=== PATIENT | male | born 1960 | race Caucasian/White ===

== ENCOUNTER 2016-10-25 09:11 | Inpatient (IN) | payer MEDICARE ==
[~2016-10-25] VITALS: Ht 177.8 cm; Wt 186.3 kg
[2016-10-25] VITALS (14 sets, daily range): BP systolic 115–180; BP diastolic 80–119
[~2016-10-25 09:11] MED LIST: ACET325T9 PO; ALBU0.63 NEB; ALBU2.5V5 NEB; ALBU8.5H6 INH; ALLO300T PO; AMIO200T2 PO; AMLO5TAB2 PO; ASPI-482 PO; ASPI325T4 PO; ATOR10TA60 PO; ATOR20TA PO; ATOR20TA58 PO; CARV12.52 PO; CARV25TA PO; CEFA2PLA4 IV; CHOL20002 PO; DABI150C PO; DICL100G7 TP; ERGO2000 PO; FEBU40TA PO; FENO134C PO; FENO160T PO; FURO-69 PO; FURO80TA3 PO; GEMF600T3 PO; GLIM4TAB2 PO; HYDR-2678 PO; LEVE100020 PO; LEVE500T56 PO; LEVO50TA5 PO; LEVO75TA PO; LEVO75TA5 PO; LIDO700A4 TP; LOSA100T2 PO; LOSA100T6 PO; MELA3TAB PO; MEXI200C PO; MODA200T2 PO; Methocarbamol PO; OXYC-244 PO; PANT40TA3 PO; POTA20TA4 PO; POTA20TA84 PO; PROAIR HFA8.5 GM IH; PROAIR HFA8.5 GM INH; SERT100T PO; SERT100T8 PO; SPIR50TA2 PO; SULF1TAB24 PO; TEMA7.5C PO; WARF5TAB PO; WARF5TAB7 PO
--- NOTE | 2016-10-25 09:44 | PHYS DOC ---
Past Medical History Past Medical History: CAD, CHF, CVA, Hypertension, Seizure, Stroke Additional Past Medical Histor: SLEEP APNEA, GOUT Past Surgical History: Cholecystectomy, Pacemaker Additional Past Surgical Histo: with defibrillator Alcohol Use: None Drug Use: None Adult General Chief Complaint Chief Complaint: SHORTNESS OF BREATH HPI HPI Patient is a 56 year old male who presents with shortness of breath. Patient reports over the past 2 weeks he has had increasing difficulty breathing. He denies any chest discomfort. He is coughing some and has been unable to lie flat. Patient says he has been taking his diuretic as he is supposed to. No other acute complaints. Review of Systems Review of Systems Constitutional: Denies fever or chills Eyes: Denies change in visual acuity or eye pain HENT: Denies nasal congestion or sore throat Respiratory: Cough, shortness of breath Cardiovascular: Denies chest pain GI: Denies abdominal pain, nausea, vomiting, bloody stools or diarrhea : Denies dysuria or hematuria Musculoskeletal: Denies back pain or joint pain Integument: Denies rash or skin lesions Neurologic: Denies headache, focal weakness or sensory changes Current Medications Current Medications Current Medications Medications (Trade) Dose Ordered Sig/Abhay Start Time Stop Time Status Last Admin Dose Admin Aspirin (Children'S Aspirin) 324 mg 1X ONCE 10/25/16 09:45 10/25/16 09:46 DC 10/25/16 09:52 324 MG Furosemide (Lasix) 40 mg 1X ONCE 10/25/16 10:30 10/25/16 10:31 DC 10/25/16 11:01 40 MG Allergies Allergies Allergies Coded Allergies Type Severity Reaction Last Updated Verified No Known Drug Allergies 10/25/16 No Physical Exam Physical Exam Constitutional: Well developed, well nourished, no acute distress, non-toxic appearance HENT: Normocephalic, atraumatic, bilateral external ears normal Eyes: EOMI, conjunctiva normal, no discharge Neck: Normal range of motion, no stridor Cardiovascular: Heart rate normal, regular rhythm, no murmur Lungs & Thorax: Bibasilar crackles Abdomen: Protuberant, bowel sounds normal, soft, non-distended, no TTP Skin: Warm, dry, no erythema, no rash Extremities: No obvious deformity, no edema Neurologic: Alert and oriented X 3, no gross deficits noted Current Patient Data Vital Signs Vital Signs Date Time Temp Pulse Resp B/P Pulse Ox O2 Delivery O2 Flow Rate FiO2 10/25/16 09:52 80 20 139/75 95 Nasal Cannula 2 10/25/16 09:20 99.0 99.0 Lab Values Laboratory Tests Test 10/25/16 09:25 White Blood Count 8.5x10^3/uL (4.0-11.0) Red Blood Count 4.64x10^6/uL (4.30-5.70) Hemoglobin 15.4g/dL (13.0-17.5) Hematocrit 46.4% (39.0-53.0) Mean Corpuscular Volume 100fL (79-100) Mean Corpuscular Hemoglobin 33pg (25-35) Mean Corpuscular Hemoglobin Concent 33g/dL (31-37) Red Cell Distribution Width 13.7% (11.5-14.5) Platelet Count 231x10^3/uL (140-400) Neutrophils (%) (Auto) 66% (31-73) Lymphocytes (%) (Auto) 19% (24-48) L Monocytes (%) (Auto) 9% (0-9) Eosinophils (%) (Auto) 5% (0-3) H Basophils (%) (Auto) 1% (0-3) Neutrophils # (Auto) 5.6x10^3uL (1.8-7.7) Lymphocytes # (Auto) 1.6x10^3/uL (1.0-4.8) Monocytes # (Auto) 0.7x10^3/uL (0.0-1.1) Eosinophils # (Auto) 0.5x10^3/uL (0.0-0.7) Basophils # (Auto) 0.0x10^3/uL (0.0-0.2) Sodium Level 144mmol/L (136-145) Potassium Level 3.6mmol/L (3.5-5.1) Chloride Level 107mmol/L (98-107) Carbon Dioxide Level 27mmol/L (21-32) Anion Gap 10 (6-14) Blood Urea Nitrogen 19mg/dL (8-26) Creatinine 1.1mg/dL (0.7-1.3) Estimated GFR (Cockcroft-Gault) 69.0 Glucose Level 156mg/dL (70-99) H Calcium Level 9.1mg/dL (8.5-10.1) Troponin I Quantitative 0.131ng/mL (0.000-0.055) IE-Fvd-G-Type Natriuretic Peptide 1845pg/mL (0-124) H Laboratory Tests 10/25/16 09:25 Laboratory Tests 10/25/16 09:25 EKG EKG EKG (my read): V-paced rhythm, rate 80, LAD Radiology/Procedures Radiology/Procedures CXR: IMPRESSION: Cardiomegaly. Mild congestive heart failure Course & Med Decision Making Course & Med Decision Making Pertinent Labs and Imaging studies reviewed. (See chart for details) Patient is 56 year old male who presents with SOB. Suspect CHF exacerbation based on HPI. Will check EKG, CXR, labs. ASA ordered. CXR results as above. BNP elevated. Troponin also mildly elevated, however this is at recent baseline. Dose of lasix ordered. Discussed results with patient. Discussed with Dr. Barrow , will admit under his care for further evaluation and treatment. Dragon Disclaimer Dragon Disclaimer This electronic medical record was generated, in whole or in part, using a voice recognition dictation system. Departure Departure Impression: Primary Impression: CHF exacerbation Disposition: ADMITTED INPATIENT Admitting Physician: Victor Manuel Barrow Condition: STABLE Referrals: VICTOR MANUEL BARROW MD (PCP) CYNTHIA BARBOUR MD Oct 25, 2016 09:43
[2016-10-25] MEDS ORDERED: ASPIRIN 81 MG TAB.CHEW PO ONE (09:45)
[2016-10-25 09:47] LABS: BASO % 1 % (0-3); EOS % 5 % (0-3); HEMATOCRIT 46.4 % (39.0-53.0); HEMOGLOBIN 15.4 g/dL (13.0-17.5); LYMPH # 1.6 x10^3/uL (1.0-4.8); LYMPH % 19 % (24-48); MEAN CORPUSCULAR HEMOGLOBIN 33 pg (25-35); MEAN CORPUSCULAR HGB CONC 33 g/dL (31-37); MEAN CORPUSCULAR VOLUME 100 fL (79-100); MONO % 9 % (0-9); NEUT % 66 % (31-73); PLATELET COUNT 231 x10^3/uL (140-400); RED BLOOD COUNT 4.64 x10^6/uL (4.30-5.70); RED CELL DISTRIBUTION WIDTH 13.7 % (11.5-14.5); WHITE BLOOD COUNT 8.5 x10^3/uL (4.0-11.0)
--- NOTE | 2016-10-25 09:52 | RAD ---
Indication shortness of breath for several months. A single view of the chest was obtained and is compared to an examination 07/17/2016. There is unchanged cardiomegaly. There are changes of mild congestive heart failure. A consolidated pneumonia is not seen. There may be tiny pleural effusions. There is no pneumothorax. Defibrillating and bipolar cardiac pacing device is noted. IMPRESSION: Cardiomegaly. Mild congestive heart failure
[2016-10-25] MEDS ORDERED: LEVO50TA5 PO (09:54)
[2016-10-25] MEDS ORDERED: WARF5TAB7 PO (09:54)
[2016-10-25] MEDS ORDERED: CARV12.52 PO (09:54)
[2016-10-25 09:58] LABS: CALCIUM 9.1 mg/dL (8.5-10.1); CREATININE 1.1 mg/dL (0.7-1.3); POTASSIUM 3.6 mmol/L (3.5-5.1)
[2016-10-25] MEDS ORDERED: FUROSEMIDE 40 MG/4 ML VIAL IVP ONE (10:30)
[2016-10-25] MEDS ORDERED: MORPHINE SULFATE 2 MG/ML DISP.SYRIN. IV PRN (11:00)
[2016-10-25] MEDS ORDERED: ONDANSETRON PF 4 MG/2 ML VIAL. IV PRN (11:00)
[2016-10-25] MEDS ORDERED: ACETAMINOPHEN 325 MG TABLET. PO PRN (11:00)
--- NOTE | 2016-10-25 11:07 | EKG ---
[facility] [address] [place] [address] Test Date: 2016-10-25 Test Time: 09:24:12 Pat Name: SIMRAN THOMAS Department: Room: Gender: M Tomato Paste Maker: : 1960 Requested By: CYNTHIA BARBOUR Order Number: [id number] Reading MD: Joanne Martínez Measurements Intervals [place] Rate: 80 P: 0 [place]: 132 QRS: -82 QRSD: 210 T: 122 QT: 448 QTc: 521 Interpretive Statements ELECTRONIC PACEMAKER. V PACED AT 80 PER MIN ABNORMAL ECG Electronically Signed On 10-27-2016 18:46:46 PARKING TECHNICIAN by Joanne Martínez
[2016-10-25] MEDS: IPRATRPIUM/ALBUTEROL 0.5/2.5MG 3 ML NEBU. NEB SCH ×3 (12:55→20:00)
--- NOTE | 2016-10-25 15:31 | ACF ---
Admission Forms Criteria HEART FAILURE Clinical Indications for Admission to Inpatient Care (Place 'X' for any and all applicable criteria): Admission is indicated by ANY ONE of the following(1)(2)(3)(4): [ ]I. Severe electrolyte abnormalities requiring inpatient care(9) [ ]II. Hemodynamic instability [ ]III. Anasarca [ ]IV. Acute cardiac ischemia causing or associated with failure (Also use Angina or Myocardial Infarction as appropriate) [ ]V. Cardiac arrhythmias of immediate concern [ ]. Precipitating cause for acute decompensation (eg, pneumonia, pulmonary embolism) requires inpatient care [ ]VII. Pulmonary edema that is very severe (eg, mechanical ventilation needed, imminent or likely, need for 100% oxygen to keep oxygen saturation above 90%) [ ]VIII. Inpatient admission required rather than observation care (Also use Heart Failure: Observation Care as appropriate) because of ANY ONE of the following: [ ]a) Pulmonary edema that is severe or worsening as indicated by ALL of the following: [ ]i) New need for oxygen therapy to keep oxygen saturation above 90% (or increased FiO2 need from baseline) [ ]ii) Has not improved sufficiently with emergency department or observation care IV diuretics or other heart failure treatments[C] [ ]b) Cognitive impairment that is severe or persistent [ ]c) Increased creatinine (new on laboratory test) with reduction of more than 50% in estimated glomerular filtration rate from baseline. [ ]d) Acute renal insufficiency (progressively (ongoing) rising creatinine (known from past laboratory test) with reduction of more than 25% in estimated glomerular filtration rate from baseline) [ ]e) Acute peripheral ischemia (eg, pulseless, cool, mottled, or cyanotic extremity) [ ]f) Acute renal failure [ ]g) Supplemental O2 or respiratory treatment for >24 hr that are performable only in acute inpatient setting [ ]h) Pulmonary artery catheter monitoring [ ]i) Other condition, treatment or monitoring requiring inpatient admission [X]IX. Contraindications and/or Inappropriate clinical situations for Observational Care in patients with Heart Failure, when ANY ONE of the following is required: [ ]a) Patient with High risk of cardiac embolism (e.g, patients with previous cardiac embolism, LVEF < 40%, age >75 and patients with prosthetic valve) 18 [ ]b) Patient with Moderate risk including DM patient, CAD and patient aged 65-75 [ ]c) Patient with any change in cardiac biomarker especially troponin should be managed as high risk in an inpatient setting 19 [ ]d) Physician judgement irrespective of ECG and other diagnostic findings 20 [ ]e) Patients with hyponatremia have high risk for mortality and require more extensive care and length of stay 21 [X]f) Need for large volume diuresis 21 [ ]g) Presence of renal insufficiency or hypotension limiting speed of diuresis 21 [ ]h) Acute cardiac Ischemia in the elderly 21 [ ]i) Patients with a 30 day risk of mortality based on a multidimensional prognostic index (MPI) [J,]21 [ ]X. General contraindications and/or Inappropriate clinical situations for Observational Care in patients with Heart Failure, when ANY ONE of the following is required: [ ]a) Prediction of prolongation of LOS based on ANY ONE of the following may be considered as a contraindication for observational care 2, 3, 4, 5, 6, 7, 8 , 9, 10, 11 [ ]i) Age > 65 yrs. [ ]ii) Patient arriving by ambulance [ ]iii) Patient with high acuity [ ]iv) Patient requiring vital sign monitoring [ ]v) Patient on IV medication [ ]b) Systolic blood pressures 180mmHg 3,12 [ ]c) Patient with altered mental status including delirium and other alteration of consciousness, (3) [ ]d) Patient whose discharge disposition will be to a alf home or rehabilitation home should not be managed in Emergency Department Observation Unit. CMS rule requires 3 days hospital stay before such placement.3,13 [ ]e) Patient with failure to thrive due to broad array of etiologies 3,16,17 [ ]f) Inability to ambulate 3,14 Extended stay beyond goal length of stay may be needed for(1)(3)(21)(25): [ ]a) Cardiac ischemia, confirmed or suspected as precipitant [ ]b) Cardiogenic shock or refractory pulmonary edema [ ]c) Acute kidney injury or renal failure [ ]d) Respiratory failure (eg, need for noninvasive or invasive mechanical ventilation) (23) [ ]e) Concomitant pneumonia or significant electrolyte abnormality (eg, severe hyponatremia) [ ]f) Newly diagnosed (new onset) atrial fibrillation [ ]g) Stage IV chronic kidney disease (estimated glomerular filtration rate of less than 30 mL/min/1.73m2 (0.50 mL/sec/1.73m2), and not previously on chronic dialysis The original [facility] content created by [facility] has been revised. The portions of the content which have been revised are identified through the use of italic text or in bold, and [facility] has neither reviewed nor approved the modified material. All other unmodified content is copyright [facility]. Please see references footnoted in the original [facility] edition 2016 Admission Criteria Met?: Yes FREDA IRELAND Oct 25, 2016 15:31
[2016-10-25] MEDS ORDERED: OXYCODONE/APAP 7.5/325 TABLET. PO PRN (17:45)
[2016-10-25] MEDS ORDERED: ALBUTEROL SULFATE 2.5 MG/3 ML NEBU. NEB PRN (18:00)
[2016-10-25] MEDS: RIVAROXABAN 10 MG TABLET. PO SCH ×2 (18:30→21:08)
[2016-10-25] MEDS: CARVEDILOL 12.5 MG TABLET PO SCH (18:44)
[2016-10-25] MEDS: NICARDIPINE HCL 50 MG in IV NORMAL SALINE 250ML 250 ML IV PRN (19:04)
--- NOTE | 2016-10-25 19:13 | PDOC2 ---
CONSULT Date of Consult Date of Consult DATE: 10/25/16 TIME: 19:08 Reason for Consult Reason for Consult: Dyspnea and hypertension History of Present Illness Reason for Visit: This patient is a 56-year-old gentleman that I have known for many years. He is morbidly obese and has a long-standing advanced dilated cardiomyopathy. 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 He comes in with edema and severe dyspnea found to have an elevated blood pressure. At the time that I saw him he denies having any chest pains but continues to complain of the dyspnea. Past Medical History Cardiovascular: AFIB, CAD, CHF, HTN, Hyperlipidemia Pulmonary: Asthma, Other CENTRAL NERVOUS SYSTEM: CVA, Seizure GI: No pertinent hx Heme/Onc: No pertinent hx Hepatobiliary: No pertinent hx Psych: Depression Rheumatologic: Gout Infectious disease: No pertinent hx Renal/: Urinary Incontinence Endocrine: Diabetes Past Surgical History Past Surgical History: Cholecystectomy, Other Family History Family History: Diabetes, Heart Disease, Hypertension, Stroke Social History ALCOHOL: none Drugs: None Current Problem List Problem List Problems Medical Problems: (1) Acute on chronic systolic heart failure Status: Acute (2) CHF exacerbation Status: Acute Current Medications Current Medications Current Medications Aspirin (Children'S Aspirin) 324 mg 1X ONCE PO Last administered on 10/25/16 09:52; Start 10/25/16 at 09:45; Stop 10/25/16 at 09:46; Status DC Furosemide (Lasix) 40 mg 1X ONCE IVP Last administered on 10/25/16 11:01; Start 10/25/16 at 10:30; Stop 10/25/16 at 10:31; Status DC Ondansetron HCl (Zofran) 4 mg PRN Q8HRS PRN IV NAUSEA/VOMITING; Start 10/25/16 at 11:00; Stop 10/26/16 at 10:59 Morphine Sulfate 2 mg PRN Q2HR PRN IV PAIN; Start 10/25/16 at 11:00; Stop 10/26 at 10:59 Acetaminophen (Tylenol) 650 mg PRN Q4HRS PRN PO FEVER; Start 10/25/16 at 11:00 ; Stop 10/26/16 at 10:59 Albuterol/ Ipratropium 3 ml 3 ml RTQID NEB Last administered on 10/25/16 16:52 ; Start 10/25/16 at 12:00; Stop 10/26/16 at 11:59 Nicardipine HCl/ Sodium Chloride (Cardene/Iv Sodium Chloride 0.9% 250ml) 270 ml @ 0 mls/hr CONT PRN IV SEE I/O RECORD; Start 10/25/16 at 17:45 Furosemide (Lasix) 40 mg BID@08,20 IVP ; Start 10/25/16 at 20:00 Acetaminophen (Tylenol) 650 mg QID PO ; Start 10/25/16 at 21:00 Allopurinol (Zyloprim) 300 mg DAILY PO ; Start 10/26/16 at 09:00 Amiodarone HCl (Cordarone) 200 mg DAILY PO ; Start 10/26/16 at 09:00 Aspirin (Ecotrin) 81 mg DAILY PO ; Start 10/26/16 at 09:00 Atorvastatin Calcium (Lipitor) 10 mg HS PO ; Start 10/25/16 at 21:00 Carvedilol (Coreg) 12.5 mg BIDWMEALS PO Last administered on 10/25/16t 18:44; Start 10/25/16 at 18:30 Furosemide (Lasix) 60 mg DAILY PO ; Start 10/26/16 at 09:00; Status Cancel Gemfibrozil (Lopid) 600 mg BID PO ; Start 10/25/16 at 21:00 Levetiracetam (Keppra) 1,500 mg BID PO ; Start 10/25/16 at 21:00 Levothyroxine Sodium (Synthroid) 50 mcg DAILY07 PO ; Start 10/26/16 at 07:00 Mexiletine HCl (Mexitil) 200 mg DAILY PO ; Start 10/26/16 at 09:00 Oxycodone/ Acetaminophen (Percocet 7.5/ 325) 1 tab PRN QID PRN PO PAIN; Start 10/25/16 at 17:45 Pantoprazole Sodium (Protonix) 40 mg DAILYAC PO ; Start 10/26/16 at 07:30 Albuterol Sulfate (Ventolin Neb Soln) 2.5 mg RTQID NEB ; Start 10/25/16 at 20:00 Albuterol Sulfate (Ventolin Neb Soln) 2.5 mg PRN Q6HRS PRN NEB SHORTNESS OF BREATH; Start 10/25/16 at 18:00 Potassium Chloride (Klor-Con) 40 meq AOB751 PO ; Start 10/26/16 at 18:30 Sertraline HCl (Zoloft) 100 mg BID PO ; Start 10/25/16 at 21:00 Rivaroxaban (Xarelto) 20 mg DAILYWSUP PO ; Start 10/25/16 at 18:30 Active Scripts Active Lasix (Furosemide) 20 Mg Tablet 3 Tab PO DAILY Synthroid (Levothyroxine Sodium) 75 Mcg Tablet 75 Mcg PO DAILY07 Amiodarone Hcl 200 Mg Tablet 200 Mg PO DAILY Mexiletine Hcl 200 Mg Capsule 200 Mg PO DAILY K-Tab ER (Potassium Chloride) 20 Meq Tablet.er 40 Meq PO [id number] Keppra (Levetiracetam) 500 Mg Tablet 1,500 Mg PO BID Proair Hfa Inhaler (Albuterol Sulfate) 8.5 Gm Hfa.aer.ad 1 Puff INH PRN Q6HRS PRN Reported Carvedilol 12.5 Mg Tablet 1 Tab PO BID Levothyroxine Sodium 50 Mcg Tablet 1 Tab PO DAILY Warfarin Sodium 5 Mg Tablet 1 Tab PO DAILY Atorvastatin Calcium 10 Mg Tablet 10 Mg PO HS Gemfibrozil 600 Mg Tablet 1 Tab PO BID Aspir 81 (Aspirin) 81 Mg Tablet.dr 1 Tab PO DAILY Percocet 7.5-325 Mg Tablet (Oxycodone/Acetaminophen) 1 Each Tablet 1 Tab PO PRN QID PRN Tylenol (Acetaminophen) 325 Mg Tablet 1-2 Tab PO QID Protonix (Pantoprazole Sodium) 40 Mg Tablet.dr 1 Tab PO DAILY Albuterol Sulfate Neb Soln (Albuterol Sulfate) 0.63 Mg/3 Ml Vial.neb 1 Vial NEB QID Zoloft (Sertraline Hcl) 100 Mg Tablet 100 Mg PO BID Allopurinol 300 Mg Tablet 300 Mg PO DAILY Allergies Allergies: Coded Allergies: No Known Drug Allergies (Unverified , 10/25/16) Physical Exam Physical Exam Patient is in mild distress at the time of the examination. H EENT pupils are reactive. Neck is massive, not able to see jugular veins. Lungs his Rales on both sides. Heart regular rate and rhythm S1-S2 no S3 no S4, systolic murmur present. Abdomen is protuberant. Extremities 2+ pitting edema. Neurological exam is grossly unchanged from his last examination and the deficit of the previous CVA. Vitals VITALS Vital Signs Date Time Temp Pulse Resp B/P Pulse Ox O2 Delivery O2 Flow Rate FiO2 10/25/16 18:49 80 24 180/109 10/25/16 17:45 95 Nasal Cannula 2.0 10/25/16 16:30 98.5 98.5 Labs Labs Laboratory Tests Test 10/25/16 09:25 10/25/16 17:25 White Blood Count 8.5x10^3/uL (4.0-11.0) Red Blood Count 4.64x10^6/uL (4.30-5.70) Hemoglobin 15.4g/dL (13.0-17.5) Hematocrit 46.4% (39.0-53.0) Mean Corpuscular Volume 100fL (79-100) Mean Corpuscular Hemoglobin 33pg (25-35) Mean Corpuscular Hemoglobin Concent 33g/dL (31-37) Red Cell Distribution Width 13.7% (11.5-14.5) Platelet Count 231x10^3/uL (140-400) Neutrophils (%) (Auto) 66% (31-73) Lymphocytes (%) (Auto) 19% (24-48) Monocytes (%) (Auto) 9% (0-9) Eosinophils (%) (Auto) 5% (0-3) Basophils (%) (Auto) 1% (0-3) Neutrophils # (Auto) 5.6x10^3uL (1.8-7.7) Lymphocytes # (Auto) 1.6x10^3/uL (1.0-4.8) Monocytes # (Auto) 0.7x10^3/uL (0.0-1.1) Eosinophils # (Auto) 0.5x10^3/uL (0.0-0.7) Basophils # (Auto) 0.0x10^3/uL (0.0-0.2) Sodium Level 144mmol/L (136-145) Potassium Level 3.6mmol/L (3.5-5.1) Chloride Level 107mmol/L (98-107) Carbon Dioxide Level 27mmol/L (21-32) Anion Gap 10 (6-14) Blood Urea Nitrogen 19mg/dL (8-26) Creatinine 1.1mg/dL (0.7-1.3) Estimated GFR (Cockcroft-Gault) 69.0 Glucose Level 156mg/dL (70-99) Calcium Level 9.1mg/dL (8.5-10.1) Troponin I Quantitative 0.131ng/mL (0.000-0.055) 0.136ng/mL (0.000-0.055) CU-Sjt-W-Type Natriuretic Peptide 1845pg/mL (0-124) Laboratory Tests Test 10/25/16 09:25 10/25/16 17:25 White Blood Count 8.5x10^3/uL (4.0-11.0) Red Blood Count 4.64x10^6/uL (4.30-5.70) Hemoglobin 15.4g/dL (13.0-17.5) Hematocrit 46.4% (39.0-53.0) Mean Corpuscular Volume 100fL (79-100) Mean Corpuscular Hemoglobin 33pg (25-35) Mean Corpuscular Hemoglobin Concent 33g/dL (31-37) Red Cell Distribution Width 13.7% (11.5-14.5) Platelet Count 231x10^3/uL (140-400) Neutrophils (%) (Auto) 66% (31-73) Lymphocytes (%) (Auto) 19% (24-48) Monocytes (%) (Auto) 9% (0-9) Eosinophils (%) (Auto) 5% (0-3) Basophils (%) (Auto) 1% (0-3) Neutrophils # (Auto) 5.6x10^3uL (1.8-7.7) Lymphocytes # (Auto) 1.6x10^3/uL (1.0-4.8) Monocytes # (Auto) 0.7x10^3/uL (0.0-1.1) Eosinophils # (Auto) 0.5x10^3/uL (0.0-0.7) Basophils # (Auto) 0.0x10^3/uL (0.0-0.2) Sodium Level 144mmol/L (136-145) Potassium Level 3.6mmol/L (3.5-5.1) Chloride Level 107mmol/L (98-107) Carbon Dioxide Level 27mmol/L (21-32) Anion Gap 10 (6-14) Blood Urea Nitrogen 19mg/dL (8-26) Creatinine 1.1mg/dL (0.7-1.3) Estimated GFR (Cockcroft-Gault) 69.0 Glucose Level 156mg/dL (70-99) Calcium Level 9.1mg/dL (8.5-10.1) Troponin I Quantitative 0.131ng/mL (0.000-0.055) 0.136ng/mL (0.000-0.055) SG-Kzb-M-Type Natriuretic Peptide 1845pg/mL (0-124) Assessment/Plan Assessment/Plan Patient with an advanced dilated cardiomyopathy and uncontrolled hypertension comes in in acute CHF secondary to systolic dysfunction as well as hypertensive cardiovascular disease. I would recommend to diurese him and control the blood pressure with a Cardene drip. Thank you very much for asking me to participate in the care of this patient DEDRICK CHENG MD Oct 25, 2016 19:13
[2016-10-25] MEDS: ALBUTEROL SULFATE 2.5 MG/3 ML NEBU. NEB SCH (20:11)
[2016-10-25] MEDS: FUROSEMIDE 40 MG/4 ML VIAL IVP SCH (21:02)
[2016-10-25] MEDS: LEVETIRACETAM 500 MG TABLET PO SCH (21:08)
[2016-10-25] MEDS: SERTRALINE 50 MG TABLET. PO SCH (21:08)
[2016-10-25] MEDS: ATORVASTATIN CALCIUM 10 MG TABLET. PO SCH (21:08)
[2016-10-25] MEDS: GEMFIBROZIL 600 MG TABLET. PO SCH (21:08)
[2016-10-25] MEDS: ACETAMINOPHEN 325 MG TABLET. PO SCH (21:11)
[2016-10-26] VITALS (21 sets, daily range): BP systolic 97–153; BP diastolic 8–95
[2016-10-26] MEDS: NICARDIPINE HCL 50 MG in IV NORMAL SALINE 250ML 250 ML IV PRN ×2 (03:59→12:45)
[2016-10-26] MEDS: LEVOTHYROXINE 50 MCG TABLET PO SCH (06:15)
[2016-10-26] MEDS: IPRATRPIUM/ALBUTEROL 0.5/2.5MG 3 ML NEBU. NEB SCH (08:00)
[2016-10-26] MEDS ORDERED: FUROSEMIDE 20 MG TABLET PO SCH (09:00)
[2016-10-26] MEDS: ACETAMINOPHEN 325 MG TABLET. PO SCH ×4 (09:00→21:00)
[2016-10-26 09:23] LABS: CALCIUM 9.2 mg/dL (8.5-10.1); CREATININE 1.5 mg/dL (0.7-1.3); GFR 48.2
[2016-10-26] MEDS: ALBUTEROL SULFATE 2.5 MG/3 ML NEBU. NEB SCH ×4 (09:29→19:16)
[2016-10-26 10:07] LABS: BASO % 0 % (0-3); EOS % 2 % (0-3); HEMATOCRIT 45.6 % (39.0-53.0); HEMOGLOBIN 15.5 g/dL (13.0-17.5); LYMPH # 0.8 x10^3/uL (1.0-4.8); LYMPH % 8 % (24-48); MEAN CORPUSCULAR HEMOGLOBIN 34 pg (25-35); MEAN CORPUSCULAR HGB CONC 34 g/dL (31-37); MEAN CORPUSCULAR VOLUME 99 fL (79-100); MONO % 5 % (0-9); NEUT % 84 % (31-73); PLATELET COUNT 213 x10^3/uL (140-400); RED BLOOD COUNT 4.59 x10^6/uL (4.30-5.70); RED CELL DISTRIBUTION WIDTH 13.6 % (11.5-14.5); WHITE BLOOD COUNT 10.1 x10^3/uL (4.0-11.0)
[2016-10-26] MEDS: ALLOPURINOL 300 MG TABLET. PO SCH (10:32)
[2016-10-26] MEDS: MEXILETINE HCL 200 MG CAPSULE PO SCH (10:33)
[2016-10-26] MEDS: GEMFIBROZIL 600 MG TABLET. PO SCH ×2 (10:33→21:35)
[2016-10-26] MEDS: FUROSEMIDE 40 MG/4 ML VIAL IVP SCH ×2 (10:33→21:36)
[2016-10-26] MEDS: SERTRALINE 50 MG TABLET. PO SCH ×2 (10:34→21:36)
[2016-10-26] MEDS: CARVEDILOL 12.5 MG TABLET PO SCH ×2 (10:34→17:46)
[2016-10-26] MEDS: AMIODARONE HCL 200 MG TABLET PO SCH (10:35)
[2016-10-26] MEDS: PANTOPRAZOLE 40 MG TABLET. PO SCH (10:36)
[2016-10-26] MEDS: LEVETIRACETAM 500 MG TABLET PO SCH ×2 (10:36→21:35)
[2016-10-26] MEDS: ASPIRIN ENTERIC COATED 81 MG TABLET.DR. PO SCH (10:36)
[2016-10-26] MEDS ORDERED: DEXTROSE 50% 25 GM / 50ML DISP.SYRIN. IV PRN (11:15)
--- NOTE | 2016-10-26 11:21 | PDOC ---
Provider Note Provider Note H&P dictated # [id number] Yasmany DOUGHERTY MD Oct 26, 2016 11:21
[2016-10-26] MEDS: INSULIN ASPART 300 UNITS/3 ML INSULN.PEN SQ SCH ×2 (12:00→17:00)
--- NOTE | 2016-10-26 14:02 | PDOC ---
PROGRESS NOTES Subjective Subjective Patient breathing easier today. He is still having blood in the urine. Objective Objective Vital Signs Date Time Temp Pulse Resp B/P Pulse Ox O2 Delivery O2 Flow Rate FiO2 10/26/16 11:38 BiPAP/CPAP 2.0 10/26/16 11:00 97.8 80 26 148/88 94 97.8 Intake and Output 10/26/16 07:00 Intake Total 0 ml Output Total 2675 ml Balance -2675 ml Intake Oral 0 ml Output Urine Total 2675 ml Physical Exam Physical Exam Moving air better. No other changes in cardiac exam. Assessment Assessment Patient's CHF seems to be improving. Urology has been consulted to evaluate the hematuria. I agree with present plan. Problems Medical Problems: (1) Acute on chronic systolic heart failure Status: Acute (2) CHF exacerbation Status: Acute Comment Review of Relevant I have reviewed the following items génesis (where applicable) has been applied. Labs Laboratory Tests Test 10/25/16 09:25 10/25/16 17:25 10/25/16 23:00 10/26/16 08:46 White Blood Count 8.5x10^3/uL (4.0-11.0) Red Blood Count 4.64x10^6/uL (4.30-5.70) Hemoglobin 15.4g/dL (13.0-17.5) Hematocrit 46.4% (39.0-53.0) Mean Corpuscular Volume 100fL (79-100) Mean Corpuscular Hemoglobin 33pg (25-35) Mean Corpuscular Hemoglobin Concent 33g/dL (31-37) Red Cell Distribution Width 13.7% (11.5-14.5) Platelet Count 231x10^3/uL (140-400) Neutrophils (%) (Auto) 66% (31-73) Lymphocytes (%) (Auto) 19% (24-48) Monocytes (%) (Auto) 9% (0-9) Eosinophils (%) (Auto) 5% (0-3) Basophils (%) (Auto) 1% (0-3) Neutrophils # (Auto) 5.6x10^3uL (1.8-7.7) Lymphocytes # (Auto) 1.6x10^3/uL (1.0-4.8) Monocytes # (Auto) 0.7x10^3/uL (0.0-1.1) Eosinophils # (Auto) 0.5x10^3/uL (0.0-0.7) Basophils # (Auto) 0.0x10^3/uL (0.0-0.2) Sodium Level 144mmol/L (136-145) 143mmol/L (136-145) Potassium Level 3.6mmol/L (3.5-5.1) 3.0mmol/L (3.5-5.1) Chloride Level 107mmol/L (98-107) 102mmol/L (98-107) Carbon Dioxide Level 27mmol/L (21-32) 29mmol/L (21-32) Anion Gap 10 (6-14) 12 (6-14) Blood Urea Nitrogen 19mg/dL (8-26) 21mg/dL (8-26) Creatinine 1.1mg/dL (0.7-1.3) 1.5mg/dL (0.7-1.3) Estimated GFR (Cockcroft-Gault) 69.0 48.2 Glucose Level 156mg/dL (70-99) 198mg/dL (70-99) Calcium Level 9.1mg/dL (8.5-10.1) 9.2mg/dL (8.5-10.1) Troponin I Quantitative 0.131ng/mL (0.000-0.055) 0.136ng/mL (0.000-0.055) 0.138ng/mL (0.000-0.055) VM-Uys-C-Type Natriuretic Peptide 1845pg/mL (0-124) Test 10/26/16 08:56 10/26/16 12:53 White Blood Count 10.1x10^3/uL (4.0-11.0) Red Blood Count 4.59x10^6/uL (4.30-5.70) Hemoglobin 15.5g/dL (13.0-17.5) Hematocrit 45.6% (39.0-53.0) Mean Corpuscular Volume 99fL (79-100) Mean Corpuscular Hemoglobin 34pg (25-35) Mean Corpuscular Hemoglobin Concent 34g/dL (31-37) Red Cell Distribution Width 13.6% (11.5-14.5) Platelet Count 213x10^3/uL (140-400) Neutrophils (%) (Auto) 84% (31-73) Lymphocytes (%) (Auto) 8% (24-48) Monocytes (%) (Auto) 5% (0-9) Eosinophils (%) (Auto) 2% (0-3) Basophils (%) (Auto) 0% (0-3) Neutrophils # (Auto) 8.5x10^3uL (1.8-7.7) Lymphocytes # (Auto) 0.8x10^3/uL (1.0-4.8) Monocytes # (Auto) 0.5x10^3/uL (0.0-1.1) Eosinophils # (Auto) 0.2x10^3/uL (0.0-0.7) Basophils # (Auto) 0.0x10^3/uL (0.0-0.2) Glucose (Fingerstick) 133mg/dL (70-99) Laboratory Tests Test 10/25/16 17:25 10/25/16 23:00 10/26/16 08:46 10/26/16 08:56 Troponin I Quantitative 0.136ng/mL (0.000-0.055) 0.138ng/mL (0.000-0.055) Sodium Level 143mmol/L (136-145) Potassium Level 3.0mmol/L (3.5-5.1) Chloride Level 102mmol/L (98-107) Carbon Dioxide Level 29mmol/L (21-32) Anion Gap 12 (6-14) Blood Urea Nitrogen 21mg/dL (8-26) Creatinine 1.5mg/dL (0.7-1.3) Estimated GFR (Cockcroft-Gault) 48.2 Glucose Level 198mg/dL (70-99) Calcium Level 9.2mg/dL (8.5-10.1) White Blood Count 10.1x10^3/uL (4.0-11.0) Red Blood Count 4.59x10^6/uL (4.30-5.70) Hemoglobin 15.5g/dL (13.0-17.5) Hematocrit 45.6% (39.0-53.0) Mean Corpuscular Volume 99fL (79-100) Mean Corpuscular Hemoglobin 34pg (25-35) Mean Corpuscular Hemoglobin Concent 34g/dL (31-37) Red Cell Distribution Width 13.6% (11.5-14.5) Platelet Count 213x10^3/uL (140-400) Neutrophils (%) (Auto) 84% (31-73) Lymphocytes (%) (Auto) 8% (24-48) Monocytes (%) (Auto) 5% (0-9) Eosinophils (%) (Auto) 2% (0-3) Basophils (%) (Auto) 0% (0-3) Neutrophils # (Auto) 8.5x10^3uL (1.8-7.7) Lymphocytes # (Auto) 0.8x10^3/uL (1.0-4.8) Monocytes # (Auto) 0.5x10^3/uL (0.0-1.1) Eosinophils # (Auto) 0.2x10^3/uL (0.0-0.7) Basophils # (Auto) 0.0x10^3/uL (0.0-0.2) Test 10/26/16 12:53 Glucose (Fingerstick) 133mg/dL (70-99) Medications Current Medications Aspirin (Children'S Aspirin) 324 mg 1X ONCE PO Last administered on 10/25/16 09:52; Start 10/25/16 at 09:45; Stop 10/25/16 at 09:46; Status DC Furosemide (Lasix) 40 mg 1X ONCE IVP Last administered on 10/25/16 11:01; Start 10/25/16 at 10:30; Stop 10/25/16 at 10:31; Status DC Ondansetron HCl (Zofran) 4 mg PRN Q8HRS PRN IV NAUSEA/VOMITING; Start 10/25/16 at 11:00; Stop 10/26/16 at 10:59; Status DC Morphine Sulfate 2 mg PRN Q2HR PRN IV PAIN; Start 10/25/16 at 11:00; Stop 10/26 at 10:59; Status DC Acetaminophen (Tylenol) 650 mg PRN Q4HRS PRN PO FEVER; Start 10/25/16 at 11:00 ; Stop 10/26/16 at 10:59; Status DC Albuterol/ Ipratropium 3 ml 3 ml RTQID NEB Last administered on 10/25/16 16:52 ; Start 10/25/16 at 12:00; Stop 10/26/16 at 11:59; Status DC Nicardipine HCl/ Sodium Chloride (Cardene/Iv Sodium Chloride 0.9% 250ml) 270 ml @ 0 mls/hr CONT PRN IV SEE I/O RECORD Last administered on 10/26/16 12:45; Start 10/25/16 at 17:45 Furosemide (Lasix) 40 mg BID@08,20 IVP Last administered on 10/26/16 10:33; Start 10/25/16 at 20:00 Acetaminophen (Tylenol) 650 mg QID PO Last administered on 10/25/16 21:11; Start 10/25/16 at 21:00 Allopurinol (Zyloprim) 300 mg DAILY PO Last administered on 10/26/16 10:32; Start 10/26/16 at 09:00 Amiodarone HCl (Cordarone) 200 mg DAILY PO Last administered on 10/26/16 10:35 ; Start 10/26/16 at 09:00 Aspirin (Ecotrin) 81 mg DAILY PO Last administered on 10/26/16 10:36; Start at 09:00 Atorvastatin Calcium (Lipitor) 10 mg HS PO Last administered on 10/25/16 21:08 ; Start 10/25/16 at 21:00 Carvedilol (Coreg) 12.5 mg BIDWMEALS PO Last administered on 10/26/16 10:34; Start 10/25/16 at 18:30; Stop 10/26/16 at 13:25; Status DC Furosemide (Lasix) 60 mg DAILY PO ; Start 10/26/16 at 09:00; Status Cancel Gemfibrozil (Lopid) 600 mg BID PO Last administered on 10/26/16 10:33; Start 10/25/16 at 21:00 Levetiracetam (Keppra) 1,500 mg BID PO Last administered on 10/26/16 10:36; Start 10/25/16 at 21:00 Levothyroxine Sodium (Synthroid) 50 mcg DAILY07 PO Last administered on 06:15; Start 10/26/16 at 07:00 Mexiletine HCl (Mexitil) 200 mg DAILY PO Last administered on 10/26/16 10:33; Start 10/26/16 at 09:00 Oxycodone/ Acetaminophen (Percocet 7.5/ 325) 1 tab PRN QID PRN PO PAIN; Start 10/25/16 at 17:45 Pantoprazole Sodium (Protonix) 40 mg DAILYAC PO Last administered on 10/26/16 10:36; Start 10/26/16 at 07:30 Albuterol Sulfate (Ventolin Neb Soln) 2.5 mg RTQID NEB Last administered on 11:37; Start 10/25/16 at 20:00 Albuterol Sulfate (Ventolin Neb Soln) 2.5 mg PRN Q6HRS PRN NEB SHORTNESS OF BREATH Last administered on 10/26/16 05:14; Start 10/25/16 at 18:00 Potassium Chloride (Klor-Con) 40 meq [id number] PO ; Start 10/26/16 at 18:30 Sertraline HCl (Zoloft) 100 mg BID PO Last administered on 10/26/16 10:34; Start 10/25/16 at 21:00 Rivaroxaban (Xarelto) 20 mg DAILYWSUP PO Last administered on 10/25/16 21:08; Start 10/25/16 at 18:30 Insulin Aspart (Novolog) 0-7 UNITS TIDWMEALS SQ ; Start 10/26/16 at 12:00 Dextrose 12.5 gm PRN Q15MIN PRN IV SEE COMMENTS; Start 10/26/16 at 11:15 Carvedilol (Coreg) 25 mg BIDWMEALS PO ; Start 10/26/16 at 17:00 Losartan Potassium (Cozaar) 100 mg DAILY PO ; Start 10/27/16 at 09:00 Active Scripts Active Lasix (Furosemide) 20 Mg Tablet 3 Tab PO DAILY Synthroid (Levothyroxine Sodium) 75 Mcg Tablet 75 Mcg PO DAILY07 Amiodarone Hcl 200 Mg Tablet 200 Mg PO DAILY Mexiletine Hcl 200 Mg Capsule 200 Mg PO DAILY K-Tab ER (Potassium Chloride) 20 Meq Tablet.er 40 Meq PO [id number] Keppra (Levetiracetam) 500 Mg Tablet 1,500 Mg PO BID Proair Hfa Inhaler (Albuterol Sulfate) 8.5 Gm Hfa.aer.ad 1 Puff INH PRN Q6HRS PRN Reported Carvedilol 12.5 Mg Tablet 1 Tab PO BID Levothyroxine Sodium 50 Mcg Tablet 1 Tab PO DAILY Warfarin Sodium 5 Mg Tablet 1 Tab PO DAILY Atorvastatin Calcium 10 Mg Tablet 10 Mg PO HS Gemfibrozil 600 Mg Tablet 1 Tab PO BID Aspir 81 (Aspirin) 81 Mg Tablet.dr 1 Tab PO DAILY Percocet 7.5-325 Mg Tablet (Oxycodone/Acetaminophen) 1 Each Tablet 1 Tab PO PRN QID PRN Tylenol (Acetaminophen) 325 Mg Tablet 1-2 Tab PO QID Protonix (Pantoprazole Sodium) 40 Mg Tablet.dr 1 Tab PO DAILY Albuterol Sulfate Neb Soln (Albuterol Sulfate) 0.63 Mg/3 Ml Vial.neb 1 Vial NEB QID Zoloft (Sertraline Hcl) 100 Mg Tablet 100 Mg PO BID Allopurinol 300 Mg Tablet 300 Mg PO DAILY Vitals/I & O Vital Sign - Last 24 Hours 10/25/16 10/25/16 10/25/16 10/25/16 14:45 15:15 15:45 16:30 Temp 98.5 98.5 Pulse 80 80 80 80 Resp 24 25 24 20 B/P 155/98 151/102 149/99 176/107 Pulse Ox 96 95 95 95 O2 Delivery Nasal Cannula Nasal Cannula Nasal Cannula Nasal Cannula O2 Flow Rate 2.0 10/25/16 10/25/16 10/25/16 10/25/16 16:30 16:45 17:00 17:45 Pulse 88 86 Resp 32 24 B/P 164/119 164/109 Pulse Ox 95 96 95 O2 Delivery Nasal Cannula Nasal Cannula Nasal Cannula Nasal Cannula O2 Flow Rate 2.0 2.0 2.0 2.0 10/25/16 10/25/16 10/25/16 10/25/16 18:44 18:49 19:45 20:00 Pulse 82 80 82 Resp 24 B/P 164/109 180/109 149/92 O2 Delivery Nasal Cannula O2 Flow Rate 2.0 10/25/16 10/25/16 10/25/16 10/25/16 20:14 20:21 20:36 20:51 Pulse 80 82 80 B/P 129/85 133/86 132/84 Pulse Ox 95 O2 Delivery BiPAP/CPAP O2 Flow Rate 2.0 10/25/16 10/25/16 10/25/16 10/25/16 21:13 21:36 22:06 22:36 Pulse 82 80 80 80 B/P 136/84 135/92 124/80 123/84 10/25/16 10/25/16 10/26/16 10/26/16 23:05 23:36 01:00 02:06 Pulse 80 80 80 82 B/P 117/85 115/81 119/87 119/8 10/26/16 10/26/16 10/26/16 10/26/16 03:06 03:45 04:36 05:06 Temp 97.9 97.9 Pulse 80 80 80 82 Resp 16 B/P 108/82 116/80 112/83 136/89 Pulse Ox 96 O2 Delivery BiPAP/CPAP O2 Flow Rate 2.0 10/26/16 10/26/16 10/26/16 10/26/16 05:18 06:00 09:30 10:34 Temp 98.7 98.7 Pulse 80 80 Resp 28 B/P 138/64 138/64 Pulse Ox 96 90 89 O2 Delivery BiPAP/CPAP Room Air Room Air O2 Flow Rate 2.0 10/26/16 10/26/16 10/26/16 10:35 11:00 11:38 Temp 97.8 97.8 Pulse 80 80 Resp 26 B/P 138/64 148/88 Pulse Ox 94 O2 Delivery BiPAP/CPAP BiPAP/CPAP O2 Flow Rate 2.0 Intake and Output 10/25/16 10/25/16 10/26/16 15:00 23:00 07:00 Intake Total 0 ml Output Total 1125 ml 900 ml 650 ml Balance -1125 ml -900 ml -650 ml DEDRICK CHENG MD Oct 26, 2016 14:02
--- NOTE | 2016-10-26 14:19 | PDOC ---
SUBJECTIVE Subjective pt. with hematuria post hess placement OBJECTIVE Objective hess to gravity urine stanley Vital Signs Vital Signs Date Time Temp Pulse Resp B/P Pulse Ox O2 Delivery O2 Flow Rate FiO2 10/26/16 11:38 BiPAP/CPAP 2.0 10/26/16 11:00 97.8 80 26 148/88 94 BiPAP/CPAP 97.8 10/26/16 10:35 80 138/64 10/26/16 10:34 80 138/64 10/26/16 09:30 89 Room Air 10/26/16 06:00 98.7 80 28 138/64 90 Room Air 98.7 10/26/16 05:18 96 BiPAP/CPAP 2.0 10/26/16 05:06 82 136/89 10/26/16 04:36 80 112/83 10/26/16 03:45 97.9 80 16 116/80 96 BiPAP/CPAP 2.0 97.9 10/26/16 03:06 80 108/82 10/26/16 02:06 82 119/8 10/26/16 01:00 80 119/87 10/25/16 23:36 80 115/81 10/25/16 23:05 80 117/85 10/25/16 22:36 80 123/84 10/25/16 22:06 80 124/80 10/25/16 21:36 80 135/92 10/25/16 21:13 82 136/84 10/25/16 20:51 80 132/84 10/25/16 20:36 82 133/86 10/25/16 20:21 80 129/85 10/25/16 20:14 95 BiPAP/CPAP 2.0 10/25/16 20:00 82 149/92 10/25/16 19:45 Nasal Cannula 2.0 10/25/16 18:49 80 24 180/109 10/25/16 18:44 82 164/109 10/25/16 17:45 86 24 164/109 95 Nasal Cannula 2.0 10/25/16 17:00 88 32 164/119 96 Nasal Cannula 2.0 10/25/16 16:45 95 Nasal Cannula 2.0 10/25/16 16:30 Nasal Cannula 2.0 10/25/16 16:30 98.5 80 20 176/107 95 Nasal Cannula 2.0 98.5 10/25/16 15:45 80 24 149/99 95 Nasal Cannula 10/25/16 15:15 80 25 151/102 95 Nasal Cannula 10/25/16 14:45 80 24 155/98 96 Nasal Cannula I & O Intake and Output 10/26/16 07:00 Intake Total 0 ml Output Total 2675 ml Balance -2675 ml Intake Oral 0 ml Output Urine Total 2675 ml PHYSICAL EXAM Physical Exam hess to gravity urine stanley ASSESSMENT/PLAN Assessment/Plan keep hess in place irrigate prn flomax voiding trial Friday10/28/16 Problems: COMMENT Lab Laboratory Tests Test 10/25/16 17:25 10/25/16 23:00 10/26/16 08:46 10/26/16 08:56 Troponin I Quantitative 0.136ng/mL (0.000-0.055) 0.138ng/mL (0.000-0.055) Sodium Level 143mmol/L (136-145) Potassium Level 3.0mmol/L (3.5-5.1) Chloride Level 102mmol/L (98-107) Carbon Dioxide Level 29mmol/L (21-32) Anion Gap 12 (6-14) Blood Urea Nitrogen 21mg/dL (8-26) Creatinine 1.5mg/dL (0.7-1.3) Estimated GFR (Cockcroft-Gault) 48.2 Glucose Level 198mg/dL (70-99) Calcium Level 9.2mg/dL (8.5-10.1) White Blood Count 10.1x10^3/uL (4.0-11.0) Red Blood Count 4.59x10^6/uL (4.30-5.70) Hemoglobin 15.5g/dL (13.0-17.5) Hematocrit 45.6% (39.0-53.0) Mean Corpuscular Volume 99fL (79-100) Mean Corpuscular Hemoglobin 34pg (25-35) Mean Corpuscular Hemoglobin Concent 34g/dL (31-37) Red Cell Distribution Width 13.6% (11.5-14.5) Platelet Count 213x10^3/uL (140-400) Neutrophils (%) (Auto) 84% (31-73) Lymphocytes (%) (Auto) 8% (24-48) Monocytes (%) (Auto) 5% (0-9) Eosinophils (%) (Auto) 2% (0-3) Basophils (%) (Auto) 0% (0-3) Neutrophils # (Auto) 8.5x10^3uL (1.8-7.7) Lymphocytes # (Auto) 0.8x10^3/uL (1.0-4.8) Monocytes # (Auto) 0.5x10^3/uL (0.0-1.1) Eosinophils # (Auto) 0.2x10^3/uL (0.0-0.7) Basophils # (Auto) 0.0x10^3/uL (0.0-0.2) Test 10/26/16 12:53 Glucose (Fingerstick) 133mg/dL (70-99) BARBARA HERNANDEZ MD Oct 26, 2016 14:19
[2016-10-26] MEDS ORDERED: CARVEDILOL 12.5 MG TABLET PO ONE (14:45)
[2016-10-26] MEDS: LOSARTAN POTASSIUM 50 MG TABLET. PO SCH (15:20)
[2016-10-26] MEDS: ATORVASTATIN CALCIUM 10 MG TABLET. PO SCH (21:29)
[2016-10-26] MEDS: POTASSIUM CHLORIDE 20 MEQ TABLET.ER. PO SCH (21:29)
[2016-10-26] MEDS: TAMSULOSIN 0.4 MG CAP.ER.24H. PO SCH (21:35)
[2016-10-27 02:09] VITALS: BP 112/65
--- NOTE | 2016-10-27 03:43 | HP ---
ADMIT DATE: 10/25/2016 ADMISSION DIAGNOSIS: [id number] systolic heart failure. HISTORY OF PRESENT ILLNESS: This is a 56-year-old white male who is morbidly obese and has longstanding advanced dilated cardiomyopathy and sees Dr. Mendoza who developed shortness of breath and was seen in the Emergency Room and found to be hypertensive and in heart failure and subsequently admitted. Dr. Mendoza has seen him in consultation and placed him on a Cardene drip to control his pressure, and he is being diuresed. I had a little difficulty placing a Alejandra catheter, and he has had a little bit of hematuria. PAST MEDICAL HISTORY: He has a medical history of atrial fib, CAD, CHF, HTN, hyperlipidemia, asthma, seizure, previous stroke and diabetes. PAST SURGICAL HISTORY: Includes cholecystectomy. FAMILY HISTORY: Positive for diabetes, hypertension, stroke and heart disease. SOCIAL HISTORY: Negative for alcohol or drug use. ALLERGIES: He has no known drug allergies. HOME MEDICATIONS: Include Tylenol 325 one or 2 q.i.d. p.r.n. pain, albuterol nebulized q.i.d. and inhaled q. 2 hours p.r.n., allopurinol 300 mg daily, amiodarone 200 mg daily, aspirin 81 daily, atorvastatin 10 at bedtime, carvedilol 12.5 b.i.d., furosemide 20 mg 3 tabs daily, gemfibrozil 600 mg b.i.d., Keppra 1500 mg b.i.d., levothyroxine 50 mcg daily, mexiletine 200 mg daily, Percocet 7.5/325 one q.i.d. p.r.n., Protonix 40 mg daily, K-Tab 20 mEq t.i.d., sertraline 100 mg b.i.d. and warfarin 5 mg daily that has been held. He is also currently on a nicardipine drip at 50 mg and is on Xarelto 20 mg daily. REVIEW OF SYSTEMS: HEENT: No apparent cough or cold symptoms. CARDIAC: As above. PULMONARY: As above. GASTROINTESTINAL: No nausea, vomiting or recent diarrhea. GENITOURINARY: Difficulty placing a Alejandra with red-colored urine now. MUSCULOSKELETAL: No acute gout symptoms. SKIN: He is unaware of any breakdown. NEUROLOGIC: No seizures. MUSCULOSKELETAL: Post-stroke related weakness. PHYSICAL EXAMINATION: GENERAL: In no acute distress. HEENT: He is wearing a BiPAP. No sinus congestion. Sclerae are nonicteric. Conjunctivae are clear. HEART: Regular rate and rhythm. He has an IV infusing Cardene. LUNGS: Clear anteriorly. ABDOMEN: Morbidly obese, soft. Bowel sounds present. LOWER EXTREMITIES: With some edema, no clubbing. Alejandra is draining a light reddish-colored urine. LABORATORY STUDIES: CBC is unremarkable. Chemistry shows potassium to be low at 3. His creatinine is elevated at 1.5. His glucose is 198. EGFR is 48. Troponin has been borderline at 0.13 x 3. BNP was slightly elevated at 1845. IMAGING STUDIES: Chest x-ray shows mild congestive heart failure. Defibrillating bipolar cardiac pacing device is noted. No pneumonia is seen. ASSESSMENT: 1. [id number] diastolic heart failure. 2. History of CVA with left-sided paralysis and seizure disorder, stable. 3. Dilated cardiomyopathy, status post AICD. 4. Anticoagulant therapy, switched from warfarin to Xarelto. 5. Hyperlipidemia. 6. Atrial fib. 7. Hypertension. 8. COPD. 9. Obstructive sleep apnea. 10. Morbid obesity. 11. Type 2 diabetes. 12. Gout. 13. Depression. PLAN: He is admitted for blood pressure control and diuresis. Dr. Mendoza is seeing him in cardiac consultation. Monitor his BUN and potassium and adjust his diuresis and supplements accordingly. W Silvestre DOUGHERTY MD DR: KATY/betty JOB#: [id number] / [id number]
[2016-10-27 06:03] LABS: CALCIUM 9.2 mg/dL (8.5-10.1); CREATININE 1.5 mg/dL (0.7-1.3); GFR 48.2; MAGNESIUM 1.8 mg/dL (1.8-2.4); POTASSIUM 3.3 mmol/L (3.5-5.1)
[2016-10-27] MEDS: LEVOTHYROXINE 50 MCG TABLET PO SCH (06:27)
[2016-10-27] MEDS: POTASSIUM CHLORIDE 20 MEQ TABLET.ER. PO SCH ×3 (06:27→17:42)
[2016-10-27 07:00] VITALS: BP 107/73
[2016-10-27] MEDS: ALBUTEROL SULFATE 2.5 MG/3 ML NEBU. NEB SCH ×4 (08:00→20:00)
[2016-10-27] MEDS: INSULIN ASPART 300 UNITS/3 ML INSULN.PEN SQ SCH ×3 (08:00→17:00)
[2016-10-27] MEDS: ASPIRIN ENTERIC COATED 81 MG TABLET.DR. PO SCH (08:26)
[2016-10-27] MEDS: FUROSEMIDE 40 MG/4 ML VIAL IVP SCH ×2 (08:26→20:30)
[2016-10-27] MEDS: PANTOPRAZOLE 40 MG TABLET. PO SCH (08:26)
[2016-10-27] MEDS: LOSARTAN POTASSIUM 50 MG TABLET. PO SCH (08:27)
[2016-10-27] MEDS: LEVETIRACETAM 500 MG TABLET PO SCH ×2 (08:27→20:31)
[2016-10-27] MEDS: MEXILETINE HCL 200 MG CAPSULE PO SCH (08:28)
[2016-10-27] MEDS: GEMFIBROZIL 600 MG TABLET. PO SCH ×2 (08:28→20:31)
[2016-10-27] MEDS: SERTRALINE 50 MG TABLET. PO SCH ×2 (08:28→20:31)
[2016-10-27] MEDS: AMIODARONE HCL 200 MG TABLET PO SCH (08:28)
[2016-10-27] MEDS: CARVEDILOL 12.5 MG TABLET PO SCH ×2 (08:28→17:41)
[2016-10-27] MEDS: ACETAMINOPHEN 325 MG TABLET. PO SCH ×4 (08:31→20:32)
[2016-10-27] MEDS: ALLOPURINOL 300 MG TABLET. PO SCH (08:32)
[2016-10-27 11:00] VITALS: BP 114/77
--- NOTE | 2016-10-27 11:32 | PDOC ---
PROGRESS NOTES Subjective Subjective He is off the Cardene drip and BP controlled, he remains on Bipap, he continues to have some blood in his hess bag but no clots, he denies chest pain, other pain and has no new concerns but stools are loose and foul smelling Objective Objective Vital Signs Date Time Temp Pulse Resp B/P Pulse Ox O2 Delivery O2 Flow Rate FiO2 10/27/16 08:28 80 107/73 10/27/16 08:09 BiPAP/CPAP 2.0 10/27/16 07:00 98.1 20 91 98.1 Intake and Output 10/27/16 07:00 Intake Total 840 ml Output Total 1250 ml Balance -410 ml Intake Oral 840 ml Output Urine Total 1250 ml # Bowel Movements 1 Physical Exam Abdomen: Normal bowel sounds, Soft Heart: Regular rate Extremities: No clubbing, No cyanosis General: Alert, Cooperative HEENT: Atraumatic Lungs: Clear to auscultation MUSCULOSKELETAL: Other (left sided post stroke weakness) Neck: Supple Neuro: Normal speech Psych/Mental Status: Mental status NL Skin: No breakdown Assessment Assessment Problems Medical Problems: (1) Acute on chronic systolic heart failure Status: Acute (2) CHF exacerbation Status: Acute Plan Plan of Care 1. [id number] diastolic heart failure, from hypertension but now off cardene drip and on coreg and lorsartan po 2. History of CVA with left-sided paralysis and seizure disorder, stable. 3. Dilated cardiomyopathy, status post AICD. 4. Anticoagulant therapy, on Xarelto. 5. Hyperlipidemia. 6. Atrial fib. 7. Hypertension. 8. COPD. 9. Obstructive sleep apnea. 10. Morbid obesity. 11. Type 2 diabetes. 12. Gout. 13. Depression. 14. Hematuria after traumatic hess placement, urology following, now on Flomax , voiding trial tomorrow Comment Review of Relevant I have reviewed the following items génesis (where applicable) has been applied. Labs Laboratory Tests Test 10/25/16 17:25 10/25/16 23:00 10/26/16 08:46 10/26/16 08:56 Troponin I Quantitative 0.136ng/mL (0.000-0.055) 0.138ng/mL (0.000-0.055) Sodium Level 143mmol/L (136-145) Potassium Level 3.0mmol/L (3.5-5.1) Chloride Level 102mmol/L (98-107) Carbon Dioxide Level 29mmol/L (21-32) Anion Gap 12 (6-14) Blood Urea Nitrogen 21mg/dL (8-26) Creatinine 1.5mg/dL (0.7-1.3) Estimated GFR (Cockcroft-Gault) 48.2 Glucose Level 198mg/dL (70-99) Calcium Level 9.2mg/dL (8.5-10.1) White Blood Count 10.1x10^3/uL (4.0-11.0) Red Blood Count 4.59x10^6/uL (4.30-5.70) Hemoglobin 15.5g/dL (13.0-17.5) Hematocrit 45.6% (39.0-53.0) Mean Corpuscular Volume 99fL (79-100) Mean Corpuscular Hemoglobin 34pg (25-35) Mean Corpuscular Hemoglobin Concent 34g/dL (31-37) Red Cell Distribution Width 13.6% (11.5-14.5) Platelet Count 213x10^3/uL (140-400) Neutrophils (%) (Auto) 84% (31-73) Lymphocytes (%) (Auto) 8% (24-48) Monocytes (%) (Auto) 5% (0-9) Eosinophils (%) (Auto) 2% (0-3) Basophils (%) (Auto) 0% (0-3) Neutrophils # (Auto) 8.5x10^3uL (1.8-7.7) Lymphocytes # (Auto) 0.8x10^3/uL (1.0-4.8) Monocytes # (Auto) 0.5x10^3/uL (0.0-1.1) Eosinophils # (Auto) 0.2x10^3/uL (0.0-0.7) Basophils # (Auto) 0.0x10^3/uL (0.0-0.2) Test 10/26/16 12:53 10/26/16 21:11 10/27/16 05:00 10/27/16 08:30 Glucose (Fingerstick) 133mg/dL (70-99) 135mg/dL (70-99) 106mg/dL (70-99) Sodium Level 140mmol/L (136-145) Potassium Level 3.3mmol/L (3.5-5.1) Chloride Level 100mmol/L (98-107) Carbon Dioxide Level 29mmol/L (21-32) Anion Gap 11 (6-14) Blood Urea Nitrogen 24mg/dL (8-26) Creatinine 1.5mg/dL (0.7-1.3) Estimated GFR (Cockcroft-Gault) 48.2 Glucose Level 105mg/dL (70-99) Calcium Level 9.2mg/dL (8.5-10.1) Magnesium Level 1.8mg/dL (1.8-2.4) Laboratory Tests Test 10/26/16 12:53 10/26/16 21:11 10/27/16 05:00 10/27/16 08:30 Glucose (Fingerstick) 133mg/dL (70-99) 135mg/dL (70-99) 106mg/dL (70-99) Sodium Level 140mmol/L (136-145) Potassium Level 3.3mmol/L (3.5-5.1) Chloride Level 100mmol/L (98-107) Carbon Dioxide Level 29mmol/L (21-32) Anion Gap 11 (6-14) Blood Urea Nitrogen 24mg/dL (8-26) Creatinine 1.5mg/dL (0.7-1.3) Estimated GFR (Cockcroft-Gault) 48.2 Glucose Level 105mg/dL (70-99) Calcium Level 9.2mg/dL (8.5-10.1) Magnesium Level 1.8mg/dL (1.8-2.4) Medications Current Medications Aspirin (Children'S Aspirin) 324 mg 1X ONCE PO Last administered on 10/25/16 09:52; Start 10/25/16 at 09:45; Stop 10/25/16 at 09:46; Status DC Furosemide (Lasix) 40 mg 1X ONCE IVP Last administered on 10/25/16 11:01; Start 10/25/16 at 10:30; Stop 10/25/16 at 10:31; Status DC Ondansetron HCl (Zofran) 4 mg PRN Q8HRS PRN IV NAUSEA/VOMITING; Start 10/25/16 at 11:00; Stop 10/26/16 at 10:59; Status DC Morphine Sulfate 2 mg PRN Q2HR PRN IV PAIN; Start 10/25/16 at 11:00; Stop 10/26 at 10:59; Status DC Acetaminophen (Tylenol) 650 mg PRN Q4HRS PRN PO FEVER; Start 10/25/16 at 11:00 ; Stop 10/26/16 at 10:59; Status DC Albuterol/ Ipratropium 3 ml 3 ml RTQID NEB Last administered on 10/26/16 08:00 ; Start 10/25/16 at 12:00; Stop 10/26/16 at 11:59; Status DC Nicardipine HCl/ Sodium Chloride (Cardene/Iv Sodium Chloride 0.9% 250ml) 270 ml @ 0 mls/hr CONT PRN IV SEE I/O RECORD Last administered on 10/26/16 12:45; Start 10/25/16 at 17:45 Furosemide (Lasix) 40 mg BID@08,20 IVP Last administered on 10/27/16 08:26; Start 10/25/16 at 20:00 Acetaminophen (Tylenol) 650 mg QID PO Last administered on 10/25/16 21:11; Start 10/25/16 at 21:00 Allopurinol (Zyloprim) 300 mg DAILY PO Last administered on 10/27/16 08:32; Start 10/26/16 at 09:00 Amiodarone HCl (Cordarone) 200 mg DAILY PO Last administered on 10/27/16 08:28 ; Start 10/26/16 at 09:00 Aspirin (Ecotrin) 81 mg DAILY PO Last administered on 10/27/16 08:26; Start at 09:00 Atorvastatin Calcium (Lipitor) 10 mg HS PO Last administered on 10/26/16 21:29 ; Start 10/25/16 at 21:00 Carvedilol (Coreg) 12.5 mg BIDWMEALS PO Last administered on 10/26/16 10:34; Start 10/25/16 at 18:30; Stop 10/26/16 at 13:25; Status DC Furosemide (Lasix) 60 mg DAILY PO ; Start 10/26/16 at 09:00; Status Cancel Gemfibrozil (Lopid) 600 mg BID PO Last administered on 10/27/16 08:28; Start 10/25/16 at 21:00 Levetiracetam (Keppra) 1,500 mg BID PO Last administered on 10/27/16 08:27; Start 10/25/16 at 21:00 Levothyroxine Sodium (Synthroid) 50 mcg DAILY07 PO Last administered on 06:27; Start 10/26/16 at 07:00 Mexiletine HCl (Mexitil) 200 mg DAILY PO Last administered on 10/27/16 08:28; Start 10/26/16 at 09:00 Oxycodone/ Acetaminophen (Percocet 7.5/ 325) 1 tab PRN QID PRN PO PAIN; Start 10/25/16 at 17:45 Pantoprazole Sodium (Protonix) 40 mg DAILYAC PO Last administered on 10/27/16 08:26; Start 10/26/16 at 07:30 Albuterol Sulfate (Ventolin Neb Soln) 2.5 mg RTQID NEB Last administered on 19:16; Start 10/25/16 at 20:00 Albuterol Sulfate (Ventolin Neb Soln) 2.5 mg PRN Q6HRS PRN NEB SHORTNESS OF BREATH Last administered on 10/26/16 05:14; Start 10/25/16 at 18:00 Potassium Chloride (Klor-Con) 40 meq [id number] PO Last administered on 10/27/16 06:27; Start 10/26/16 at 18:30 Sertraline HCl (Zoloft) 100 mg BID PO Last administered on 10/27/16 08:28; Start 10/25/16 at 21:00 Rivaroxaban (Xarelto) 20 mg DAILYWSUP PO Last administered on 10/25/16 21:08; Start 10/25/16 at 18:30 Insulin Aspart (Novolog) 0-7 UNITS TIDWMEALS SQ ; Start 10/26/16 at 12:00 Dextrose 12.5 gm PRN Q15MIN PRN IV SEE COMMENTS; Start 10/26/16 at 11:15 Carvedilol (Coreg) 25 mg BIDWMEALS PO Last administered on 10/27/16 08:28; Start 10/26/16 at 17:00 Losartan Potassium (Cozaar) 100 mg DAILY PO Last administered on 10/27/16 08: 27; Start 10/26/16 at 14:45 Tamsulosin HCl (Flomax) 0.4 mg QHS PO Last administered on 10/26/16 21:35; Start 10/26/16 at 21:00 Carvedilol (Coreg) 12.5 mg 1X ONCE PO Last administered on 10/26/16 15:21; Start 10/26/16 at 14:45; Stop 10/26/16 at 14:46; Status DC Active Scripts Active Lasix (Furosemide) 20 Mg Tablet 3 Tab PO DAILY Synthroid (Levothyroxine Sodium) 75 Mcg Tablet 75 Mcg PO DAILY07 Amiodarone Hcl 200 Mg Tablet 200 Mg PO DAILY Mexiletine Hcl 200 Mg Capsule 200 Mg PO DAILY K-Tab ER (Potassium Chloride) 20 Meq Tablet.er 40 Meq PO QSY033 Keppra (Levetiracetam) 500 Mg Tablet 1,500 Mg PO BID Proair Hfa Inhaler (Albuterol Sulfate) 8.5 Gm Hfa.aer.ad 1 Puff INH PRN Q6HRS PRN Reported Carvedilol 12.5 Mg Tablet 1 Tab PO BID Levothyroxine Sodium 50 Mcg Tablet 1 Tab PO DAILY Warfarin Sodium 5 Mg Tablet 1 Tab PO DAILY Atorvastatin Calcium 10 Mg Tablet 10 Mg PO HS Gemfibrozil 600 Mg Tablet 1 Tab PO BID Aspir 81 (Aspirin) 81 Mg Tablet.dr 1 Tab PO DAILY Percocet 7.5-325 Mg Tablet (Oxycodone/Acetaminophen) 1 Each Tablet 1 Tab PO PRN QID PRN Tylenol (Acetaminophen) 325 Mg Tablet 1-2 Tab PO QID Protonix (Pantoprazole Sodium) 40 Mg Tablet.dr 1 Tab PO DAILY Albuterol Sulfate Neb Soln (Albuterol Sulfate) 0.63 Mg/3 Ml Vial.neb 1 Vial NEB QID Zoloft (Sertraline Hcl) 100 Mg Tablet 100 Mg PO BID Allopurinol 300 Mg Tablet 300 Mg PO DAILY Vitals/I & O Vital Sign - Last 24 Hours 10/26/16 10/26/16 10/26/16 10/26/16 11:38 12:00 13:00 14:00 Pulse 82 80 80 B/P 134/89 140/95 149/75 O2 Delivery BiPAP/CPAP O2 Flow Rate 2.0 10/26/16 10/26/16 10/26/16 10/26/16 15:00 15:09 15:20 15:21 Temp 98.1 98.1 Pulse 80 80 80 Resp 24 B/P 133/67 148/88 148/88 Pulse Ox 93 O2 Delivery BiPAP/CPAP BiPAP/CPAP O2 Flow Rate 2.0 10/26/16 10/26/16 10/26/16 10/26/16 16:00 17:00 17:46 18:00 Pulse 80 80 80 80 B/P 147/72 123/72 123/72 146/72 10/26/16 10/26/16 10/26/16 10/26/16 19:16 20:00 20:15 23:34 Temp 98.3 98.5 98.3 98.5 Pulse 80 79 Resp 18 20 B/P 97/60 108/70 Pulse Ox 98 96 99 O2 Delivery BiPAP/CPAP Nasal Cannula BiPAP/CPAP BiPAP/CPAP O2 Flow Rate 2.0 2.0 10/27/16 10/27/16 10/27/16 10/27/16 02:09 07:00 08:00 08:09 Temp 98.7 98.1 98.7 98.1 Pulse 80 80 Resp 18 20 B/P 112/65 107/73 Pulse Ox 94 91 O2 Delivery BiPAP/CPAP Room Air Nasal Cannula BiPAP/CPAP O2 Flow Rate 2.0 2.0 10/27/16 10/27/16 10/27/16 08:27 08:28 08:28 Pulse 80 80 80 B/P 107/73 107/73 107/73 Intake and Output 10/26/16 10/26/16 10/27/16 15:00 23:00 07:00 Intake Total 840 ml Output Total 500 ml 750 ml Balance 340 ml -750 ml Yasmany DOUGHERTY MD Oct 27, 2016 11:32
--- NOTE | 2016-10-27 11:55 | RAD ---
RENAL COMPLETE BILATERAL History:Hematuria Comparison: None Findings:Multiple sonographic images of the kidneys and region of urinary bladder are submitted. Exam is limited due to attenuation by soft tissues. Urinary bladder is decompressed by Alejandra catheter, not well visualized. Right kidney measured 13.3 x 6.2 x 6.2 cm. Left kidney measured 14.2 x 6.4 x 6.5 cm. There is no hydronephrosis of either kidney. Area of hypoechogenicity of the right kidney in the pelvis may be due to prominent renal pelvis or parapelvic cyst up to 4.9 x 3 x 3.5 cm. There is slightly hypoechoic focus of the left kidney on the order of 1.6 x 2 x 1.1 cm with slight increased through transmission. Abdominal aorta and inferior vena cava are not well visualized due to attenuation by soft tissues. Impression: 1.There is no significant hydronephrosis of either kidney. Hypoechoic lesion of the left kidney is more likely cyst although somewhat difficult to accurately characterize. There is also parapelvic cyst versus prominent renal pelvis of the right kidney.
--- NOTE | 2016-10-27 13:11 | PDOC ---
Provider Note Provider Note Covering for Dr. Mendoza. Patient is using a BiPAP. He says he is comfortable and has no shortness of breath. Remains in sinus tachycardia. MAHI RICH MD Oct 27, 2016 13:11
[2016-10-27 15:00] VITALS: BP 115/99
[2016-10-27 15:04] LABS: HCO3 ABG 26 mmol/L (21-28); PCO2 ABG 44 mmHg (35-46); PO2 ABG 105 mmHg (75-108); SAT O2 ABG 98 % (92-99)
[2016-10-27 15:05] LABS: FIO2 ABG 28%
--- NOTE | 2016-10-27 15:30 | RAD ---
Single view chest History:Shortness of air An AP view of the chest is submitted. Comparison: 10/25/2016. Findings: There is again enlargement of the pericardial cardiac silhouette. There is again left electronic cardiac device. Central pulmonary vasculature is less prominent and more distinct on this exam. No new significant pleural fluid is identified. There is no pneumothorax or infiltrate. Impression: There is again enlargement of the pericardial cardiac silhouette, decreased central pulmonary edema.
[2016-10-27] MEDS: RIVAROXABAN 10 MG TABLET. PO SCH (17:42)
[2016-10-27 19:22] VITALS: BP 119/77
[2016-10-27] MEDS: ATORVASTATIN CALCIUM 10 MG TABLET. PO SCH (20:31)
[2016-10-27] MEDS: TAMSULOSIN 0.4 MG CAP.ER.24H. PO SCH (20:32)
[2016-10-27 23:49] VITALS: BP 92/50
[2016-10-28 03:08] VITALS: BP 92/52
--- NOTE | 2016-10-28 03:36 | CONS ---
DATE OF CONSULTATION: 10/26/2016 PATIENT'S ROOM: 208. HISTORY OF PRESENT ILLNESS: The patient is a very pleasant 56-year-old white male admitted with congestive heart failure. The patient had a Alejandra catheter placed on admission to help with diuresis. The patient was noted to have gross hematuria following Alejandra placement. The patient states he has had a catheter in the distant past when he had a stroke, but had never had problems with hematuria in the past. The patient is on anticoagulation because he has had prior stroke. The patient had a spontaneous subcutaneous hematoma back in July because of elevated INR. He had a CT abdomen and pelvis at that time, which showed just a left renal cyst, but normal otherwise urinary tract as far as his kidneys, bladder and prostate. The patient with no urologic troubles in the past. He does have a left hemiplegia from a stroke. He has never had any urologic operations. Testes are descended bilaterally. Phallus is within normal limits, has little blood around the meatus because he has a Alejandra catheter to gravity drainage. Urine is grossly stanley now in tubing. He did have some problems with some clot issues, but they have irrigated out. The patient's abdomen is soft, obese. On rectal examination, fair sphincter tone. Prostate smooth without nodules, overall size 20 grams. ASSESSMENT: Hematuria, most likely secondary to catheter trauma and anticoagulation. The patient is not on the warfarin anymore and being put on a Xarelto, patient's creatinine is 1.5, platelet count 213,000. PLAN: Will be to keep Alejandra catheter in place, allow for further diuresis by Cardiology to help him with his shortness of breath and congestive heart failure and then placed on Flomax and then give him a voiding trial on Friday10/28/2016 and then proceed accordingly. I certainly appreciate being allowed to participate in this patient's care. BARBARA HERNANDEZ MD DR: TRICE/betty JOB#: [id number] / [id number]
[2016-10-28 05:51] LABS: BASO % 0 % (0-3); EOS % 1 % (0-3); HEMATOCRIT 41.8 % (39.0-53.0); HEMOGLOBIN 13.8 g/dL (13.0-17.5); LYMPH # 0.7 x10^3/uL (1.0-4.8); LYMPH % 6 % (24-48); MEAN CORPUSCULAR HEMOGLOBIN 34 pg (25-35); MEAN CORPUSCULAR HGB CONC 33 g/dL (31-37); MEAN CORPUSCULAR VOLUME 102 fL (79-100); MONO % 6 % (0-9); NEUT % 87 % (31-73); PLATELET COUNT 166 x10^3/uL (140-400); RED BLOOD COUNT 4.12 x10^6/uL (4.30-5.70); RED CELL DISTRIBUTION WIDTH 13.6 % (11.5-14.5); WHITE BLOOD COUNT 12.2 x10^3/uL (4.0-11.0)
[2016-10-28 06:08] LABS: CREATININE 1.5 mg/dL (0.7-1.3); GFR 48.2; POTASSIUM 3.2 mmol/L (3.5-5.1)
[2016-10-28] MEDS: LEVOTHYROXINE 50 MCG TABLET PO SCH (06:17)
[2016-10-28] MEDS: POTASSIUM CHLORIDE 20 MEQ TABLET.ER. PO SCH ×3 (06:17→18:00)
[2016-10-28 07:10] VITALS: BP 128/73
[2016-10-28] MEDS: FUROSEMIDE 40 MG/4 ML VIAL IVP SCH ×2 (08:00→08:59)
[2016-10-28] MEDS: INSULIN ASPART 300 UNITS/3 ML INSULN.PEN SQ SCH ×3 (08:00→17:00)
[2016-10-28] MEDS: ALBUTEROL SULFATE 2.5 MG/3 ML NEBU. NEB SCH ×4 (08:22→19:31)
[2016-10-28] MEDS: LEVETIRACETAM 500 MG TABLET PO SCH ×2 (08:54→21:45)
[2016-10-28] MEDS: ALLOPURINOL 300 MG TABLET. PO SCH (08:54)
[2016-10-28] MEDS: PANTOPRAZOLE 40 MG TABLET. PO SCH (08:54)
[2016-10-28] MEDS: MEXILETINE HCL 200 MG CAPSULE PO SCH (08:55)
[2016-10-28] MEDS: GEMFIBROZIL 600 MG TABLET. PO SCH ×2 (08:56→21:44)
[2016-10-28] MEDS: ASPIRIN ENTERIC COATED 81 MG TABLET.DR. PO SCH (08:57)
[2016-10-28] MEDS: AMIODARONE HCL 200 MG TABLET PO SCH (08:57)
[2016-10-28] MEDS: CARVEDILOL 12.5 MG TABLET PO SCH ×2 (08:58→17:00)
[2016-10-28] MEDS: ACETAMINOPHEN 325 MG TABLET. PO SCH ×4 (09:00→21:00)
[2016-10-28] MEDS: SERTRALINE 50 MG TABLET. PO SCH ×2 (09:02→21:45)
[2016-10-28] MEDS ORDERED: TAMS0.4C97 PO (09:25)
[2016-10-28] MEDS ORDERED: LOSA50TA2 PO (09:25)
--- NOTE | 2016-10-28 09:38 | PDOC ---
PROGRESS NOTES Subjective Subjective Patient feeling better this morning. He denies chest pain and feels that his shortness of breath has returned to its baseline. He had an incident today in which he bled profusely from his hess catheter. Dr. Brewer from Urology has also been consulted and is following along with the patient's care to help with this issue. Objective Objective Vital Signs Date Time Temp Pulse Resp B/P Pulse Ox O2 Delivery O2 Flow Rate FiO2 10/28/16 08:58 79 114/69 10/28/16 08:24 97 BiPAP/CPAP 2.0 10/28/16 07:10 98.0 18 98.0 Intake and Output 10/28/16 07:00 Intake Total 500 ml Output Total 4250 ml Balance -3750 ml Intake Oral 500 ml Output Urine Total 4250 ml Physical Exam Physical Exam No change from previous cardiac exam, but heart sounds are muffled, +edema of lower extremities. Assessment Assessment Problems Medical Problems: (1) Acute on chronic systolic heart failure Status: Acute (2) CHF exacerbation Status: Acute Plan Plan of Care Continue current diuretics. D/C Xarelto for 1 week to decrease bleeding until patient's catheter is removed. Agree with recommendations of Urology. Comment Review of Relevant I have reviewed the following items génesis (where applicable) has been applied. Labs Laboratory Tests Test 10/26/16 12:53 10/26/16 21:11 10/27/16 05:00 10/27/16 08:30 Glucose (Fingerstick) 133mg/dL (70-99) 135mg/dL (70-99) 106mg/dL (70-99) Sodium Level 140mmol/L (136-145) Potassium Level 3.3mmol/L (3.5-5.1) Chloride Level 100mmol/L (98-107) Carbon Dioxide Level 29mmol/L (21-32) Anion Gap 11 (6-14) Blood Urea Nitrogen 24mg/dL (8-26) Creatinine 1.5mg/dL (0.7-1.3) Estimated GFR (Cockcroft-Gault) 48.2 Glucose Level 105mg/dL (70-99) Calcium Level 9.2mg/dL (8.5-10.1) Magnesium Level 1.8mg/dL (1.8-2.4) Test 10/27/16 14:50 10/27/16 17:33 10/28/16 04:55 O2 Saturation 98% (92-99) Arterial Blood pH 7.40 (7.35-7.45) Arterial Blood pCO2 at Patient Temp 44mmHg (35-46) Arterial Blood pO2 at Patient Temp 105mmHg (75-108) Arterial Blood HCO3 26mmol/L (21-28) Arterial Blood Base Excess 1mmol/L (-3-3) FiO2 28% Glucose (Fingerstick) 135mg/dL (70-99) White Blood Count 12.2x10^3/uL (4.0-11.0) Red Blood Count 4.12x10^6/uL (4.30-5.70) Hemoglobin 13.8g/dL (13.0-17.5) Hematocrit 41.8% (39.0-53.0) Mean Corpuscular Volume 102fL (79-100) Mean Corpuscular Hemoglobin 34pg (25-35) Mean Corpuscular Hemoglobin Concent 33g/dL (31-37) Red Cell Distribution Width 13.6% (11.5-14.5) Platelet Count 166x10^3/uL (140-400) Neutrophils (%) (Auto) 87% (31-73) Lymphocytes (%) (Auto) 6% (24-48) Monocytes (%) (Auto) 6% (0-9) Eosinophils (%) (Auto) 1% (0-3) Basophils (%) (Auto) 0% (0-3) Neutrophils # (Auto) 10.7x10^3uL (1.8-7.7) Lymphocytes # (Auto) 0.7x10^3/uL (1.0-4.8) Monocytes # (Auto) 0.7x10^3/uL (0.0-1.1) Eosinophils # (Auto) 0.1x10^3/uL (0.0-0.7) Basophils # (Auto) 0.0x10^3/uL (0.0-0.2) Sodium Level 141mmol/L (136-145) Potassium Level 3.2mmol/L (3.5-5.1) Chloride Level 101mmol/L (98-107) Carbon Dioxide Level 30mmol/L (21-32) Anion Gap 10 (6-14) Blood Urea Nitrogen 24mg/dL (8-26) Creatinine 1.5mg/dL (0.7-1.3) Estimated GFR (Cockcroft-Gault) 48.2 Glucose Level 104mg/dL (70-99) Calcium Level 9.0mg/dL (8.5-10.1) Laboratory Tests Test 10/27/16 14:50 10/27/16 17:33 10/28/16 04:55 O2 Saturation 98% (92-99) Arterial Blood pH 7.40 (7.35-7.45) Arterial Blood pCO2 at Patient Temp 44mmHg (35-46) Arterial Blood pO2 at Patient Temp 105mmHg (75-108) Arterial Blood HCO3 26mmol/L (21-28) Arterial Blood Base Excess 1mmol/L (-3-3) FiO2 28% Glucose (Fingerstick) 135mg/dL (70-99) White Blood Count 12.2x10^3/uL (4.0-11.0) Red Blood Count 4.12x10^6/uL (4.30-5.70) Hemoglobin 13.8g/dL (13.0-17.5) Hematocrit 41.8% (39.0-53.0) Mean Corpuscular Volume 102fL (79-100) Mean Corpuscular Hemoglobin 34pg (25-35) Mean Corpuscular Hemoglobin Concent 33g/dL (31-37) Red Cell Distribution Width 13.6% (11.5-14.5) Platelet Count 166x10^3/uL (140-400) Neutrophils (%) (Auto) 87% (31-73) Lymphocytes (%) (Auto) 6% (24-48) Monocytes (%) (Auto) 6% (0-9) Eosinophils (%) (Auto) 1% (0-3) Basophils (%) (Auto) 0% (0-3) Neutrophils # (Auto) 10.7x10^3uL (1.8-7.7) Lymphocytes # (Auto) 0.7x10^3/uL (1.0-4.8) Monocytes # (Auto) 0.7x10^3/uL (0.0-1.1) Eosinophils # (Auto) 0.1x10^3/uL (0.0-0.7) Basophils # (Auto) 0.0x10^3/uL (0.0-0.2) Sodium Level 141mmol/L (136-145) Potassium Level 3.2mmol/L (3.5-5.1) Chloride Level 101mmol/L (98-107) Carbon Dioxide Level 30mmol/L (21-32) Anion Gap 10 (6-14) Blood Urea Nitrogen 24mg/dL (8-26) Creatinine 1.5mg/dL (0.7-1.3) Estimated GFR (Cockcroft-Gault) 48.2 Glucose Level 104mg/dL (70-99) Calcium Level 9.0mg/dL (8.5-10.1) Medications Current Medications Aspirin (Children'S Aspirin) 324 mg 1X ONCE PO Last administered on 10/25/16 09:52; Start 10/25/16 at 09:45; Stop 10/25/16 at 09:46; Status DC Furosemide (Lasix) 40 mg 1X ONCE IVP Last administered on 10/25/16 11:01; Start 10/25/16 at 10:30; Stop 10/25/16 at 10:31; Status DC Ondansetron HCl (Zofran) 4 mg PRN Q8HRS PRN IV NAUSEA/VOMITING; Start 10/25/16 at 11:00; Stop 10/26/16 at 10:59; Status DC Morphine Sulfate 2 mg PRN Q2HR PRN IV PAIN; Start 10/25/16 at 11:00; Stop 10/26 at 10:59; Status DC Acetaminophen (Tylenol) 650 mg PRN Q4HRS PRN PO FEVER; Start 10/25/16 at 11:00 ; Stop 10/26/16 at 10:59; Status DC Albuterol/ Ipratropium 3 ml 3 ml RTQID NEB Last administered on 10/26/16 08:00 ; Start 10/25/16 at 12:00; Stop 10/26/16 at 11:59; Status DC Nicardipine HCl/ Sodium Chloride (Cardene/Iv Sodium Chloride 0.9% 250ml) 270 ml @ 0 mls/hr CONT PRN IV SEE I/O RECORD Last administered on 10/26/16 12:45; Start 10/25/16 at 17:45 Furosemide (Lasix) 40 mg BID@08,20 IVP Last administered on 10/28/16 08:59; Start 10/25/16 at 20:00 Acetaminophen (Tylenol) 650 mg QID PO Last administered on 10/25/16 21:11; Start 10/25/16 at 21:00 Allopurinol (Zyloprim) 300 mg DAILY PO Last administered on 10/28/16 08:54; Start 10/26/16 at 09:00 Amiodarone HCl (Cordarone) 200 mg DAILY PO Last administered on 10/28/16 08:57 ; Start 10/26/16 at 09:00 Aspirin (Ecotrin) 81 mg DAILY PO Last administered on 10/28/16 08:57; Start at 09:00 Atorvastatin Calcium (Lipitor) 10 mg HS PO Last administered on 10/27/16 20:31 ; Start 10/25/16 at 21:00 Carvedilol (Coreg) 12.5 mg BIDWMEALS PO Last administered on 10/26/16 10:34; Start 10/25/16 at 18:30; Stop 10/26/16 at 13:25; Status DC Furosemide (Lasix) 60 mg DAILY PO ; Start 10/26/16 at 09:00; Status Cancel Gemfibrozil (Lopid) 600 mg BID PO Last administered on 10/28/16 08:56; Start 10/25/16 at 21:00 Levetiracetam (Keppra) 1,500 mg BID PO Last administered on 10/28/16 08:54; Start 10/25/16 at 21:00 Levothyroxine Sodium (Synthroid) 50 mcg DAILY07 PO Last administered on 06:17; Start 10/26/16 at 07:00 Mexiletine HCl (Mexitil) 200 mg DAILY PO Last administered on 10/28/16 08:55; Start 10/26/16 at 09:00 Oxycodone/ Acetaminophen (Percocet 7.5/ 325) 1 tab PRN QID PRN PO PAIN; Start 10/25/16 at 17:45 Pantoprazole Sodium (Protonix) 40 mg DAILYAC PO Last administered on 10/28/16 08:54; Start 10/26/16 at 07:30 Albuterol Sulfate (Ventolin Neb Soln) 2.5 mg RTQID NEB Last administered on 08:22; Start 10/25/16 at 20:00 Albuterol Sulfate (Ventolin Neb Soln) 2.5 mg PRN Q6HRS PRN NEB SHORTNESS OF BREATH Last administered on 10/26/16 05:14; Start 10/25/16 at 18:00 Potassium Chloride (Klor-Con) 40 meq [id number] PO Last administered on 10/28/16 06:17; Start 10/26/16 at 18:30 Sertraline HCl (Zoloft) 100 mg BID PO Last administered on 10/28/16 09:02; Start 10/25/16 at 21:00 Rivaroxaban (Xarelto) 20 mg DAILYWSUP PO Last administered on 10/27/16 17:42; Start 10/25/16 at 18:30 Insulin Aspart (Novolog) 0-7 UNITS TIDWMEALS SQ ; Start 10/26/16 at 12:00 Dextrose 12.5 gm PRN Q15MIN PRN IV SEE COMMENTS; Start 10/26/16 at 11:15 Carvedilol (Coreg) 25 mg BIDWMEALS PO Last administered on 10/28/16 08:58; Start 10/26/16 at 17:00 Losartan Potassium (Cozaar) 100 mg DAILY PO Last administered on 10/27/16 08: 27; Start 10/26/16 at 14:45 Tamsulosin HCl (Flomax) 0.4 mg QHS PO Last administered on 10/27/16 20:32; Start 10/26/16 at 21:00 Carvedilol (Coreg) 12.5 mg 1X ONCE PO Last administered on 10/26/16 15:21; Start 10/26/16 at 14:45; Stop 10/26/16 at 14:46; Status DC Potassium Chloride (Klor-Con) 40 meq 1X ONCE PO ; Start 10/28/16 at 10:00; Stop 10/28/16 at 10:01 Active Scripts Active Lasix (Furosemide) 20 Mg Tablet 3 Tab PO DAILY Synthroid (Levothyroxine Sodium) 75 Mcg Tablet 75 Mcg PO DAILY07 Amiodarone Hcl 200 Mg Tablet 200 Mg PO DAILY Mexiletine Hcl 200 Mg Capsule 200 Mg PO DAILY K-Tab ER (Potassium Chloride) 20 Meq Tablet.er 40 Meq PO [id number] Keppra (Levetiracetam) 500 Mg Tablet 1,500 Mg PO BID Proair Hfa Inhaler (Albuterol Sulfate) 8.5 Gm Hfa.aer.ad 1 Puff INH PRN Q6HRS PRN Reported Carvedilol 12.5 Mg Tablet 1 Tab PO BID Levothyroxine Sodium 50 Mcg Tablet 1 Tab PO DAILY Warfarin Sodium 5 Mg Tablet 1 Tab PO DAILY Atorvastatin Calcium 10 Mg Tablet 10 Mg PO HS Gemfibrozil 600 Mg Tablet 1 Tab PO BID Aspir 81 (Aspirin) 81 Mg Tablet.dr 1 Tab PO DAILY Percocet 7.5-325 Mg Tablet (Oxycodone/Acetaminophen) 1 Each Tablet 1 Tab PO PRN QID PRN Tylenol (Acetaminophen) 325 Mg Tablet 1-2 Tab PO QID Protonix (Pantoprazole Sodium) 40 Mg Tablet.dr 1 Tab PO DAILY Albuterol Sulfate Neb Soln (Albuterol Sulfate) 0.63 Mg/3 Ml Vial.neb 1 Vial NEB QID Zoloft (Sertraline Hcl) 100 Mg Tablet 100 Mg PO BID Allopurinol 300 Mg Tablet 300 Mg PO DAILY Vitals/I & O Vital Sign - Last 24 Hours 10/27/16 10/27/16 10/27/16 10/27/16 11:00 12:03 15:00 15:21 Temp 97.2 99.1 97.2 99.1 Pulse 80 63 Resp 20 30 B/P 114/77 115/99 Pulse Ox 97 100 O2 Delivery BiPAP/CPAP BiPAP/CPAP BiPAP/CPAP BiPAP/CPAP O2 Flow Rate 2.0 2.0 10/27/16 10/27/16 10/27/16 10/27/16 17:41 19:22 20:14 23:49 Temp 98.0 98.6 98.0 98.6 Pulse 63 93 80 Resp 18 18 B/P 115/99 119/77 92/50 Pulse Ox 100 92 O2 Delivery BiPAP/CPAP Nasal Cannula Room Air O2 Flow Rate 2.0 10/28/16 10/28/16 10/28/16 10/28/16 03:08 07:10 08:24 08:57 Temp 98.2 98.0 98.2 98.0 Pulse 80 80 79 Resp 20 18 B/P 92/52 128/73 114/69 Pulse Ox 92 98 97 O2 Delivery BiPAP/CPAP BiPAP/CPAP BiPAP/CPAP O2 Flow Rate 2.0 10/28/16 08:58 Pulse 79 B/P 114/69 Intake and Output 10/27/16 10/27/16 10/28/16 15:00 23:00 07:00 Intake Total 500 ml Output Total 3200 ml 1050 ml Balance -2700 ml -1050 ml DEDRICK CHENG MD Oct 28, 2016 09:38
--- NOTE | 2016-10-28 09:51 | PDOC ---
SUBJECTIVE Subjective Pt. feeling ok OBJECTIVE Objective sono-ok yesterday Vital Signs Vital Signs Date Time Temp Pulse Resp B/P Pulse Ox O2 Delivery O2 Flow Rate FiO2 10/28/16 08:58 79 114/69 10/28/16 08:57 79 114/69 10/28/16 08:24 97 BiPAP/CPAP 2.0 10/28/16 07:10 98.0 80 18 128/73 98 BiPAP/CPAP 98.0 10/28/16 03:08 98.2 80 20 92/52 92 BiPAP/CPAP 98.2 10/27/16 23:49 98.6 80 18 92/50 92 Room Air 98.6 10/27/16 20:14 Nasal Cannula 2.0 10/27/16 19:22 98.0 93 18 119/77 100 BiPAP/CPAP 98.0 10/27/16 17:41 63 115/99 10/27/16 15:21 BiPAP/CPAP 2.0 10/27/16 15:00 99.1 63 30 115/99 100 BiPAP/CPAP 99.1 10/27/16 12:03 BiPAP/CPAP 2.0 10/27/16 11:00 97.2 80 20 114/77 97 BiPAP/CPAP 97.2 I & O Intake and Output 10/28/16 07:00 Intake Total 500 ml Output Total 4250 ml Balance -3750 ml Intake Oral 500 ml Output Urine Total 4250 ml PHYSICAL EXAM Physical Exam urine clear yellow ASSESSMENT/PLAN Assessment/Plan voiding trial this am if ok with Dr. Mendoza and Dr. Rayo Problems: COMMENT Lab Laboratory Tests Test 10/27/16 14:50 10/27/16 17:33 10/28/16 04:55 O2 Saturation 98% (92-99) Arterial Blood pH 7.40 (7.35-7.45) Arterial Blood pCO2 at Patient Temp 44mmHg (35-46) Arterial Blood pO2 at Patient Temp 105mmHg (75-108) Arterial Blood HCO3 26mmol/L (21-28) Arterial Blood Base Excess 1mmol/L (-3-3) FiO2 28% Glucose (Fingerstick) 135mg/dL (70-99) White Blood Count 12.2x10^3/uL (4.0-11.0) Red Blood Count 4.12x10^6/uL (4.30-5.70) Hemoglobin 13.8g/dL (13.0-17.5) Hematocrit 41.8% (39.0-53.0) Mean Corpuscular Volume 102fL (79-100) Mean Corpuscular Hemoglobin 34pg (25-35) Mean Corpuscular Hemoglobin Concent 33g/dL (31-37) Red Cell Distribution Width 13.6% (11.5-14.5) Platelet Count 166x10^3/uL (140-400) Neutrophils (%) (Auto) 87% (31-73) Lymphocytes (%) (Auto) 6% (24-48) Monocytes (%) (Auto) 6% (0-9) Eosinophils (%) (Auto) 1% (0-3) Basophils (%) (Auto) 0% (0-3) Neutrophils # (Auto) 10.7x10^3uL (1.8-7.7) Lymphocytes # (Auto) 0.7x10^3/uL (1.0-4.8) Monocytes # (Auto) 0.7x10^3/uL (0.0-1.1) Eosinophils # (Auto) 0.1x10^3/uL (0.0-0.7) Basophils # (Auto) 0.0x10^3/uL (0.0-0.2) Sodium Level 141mmol/L (136-145) Potassium Level 3.2mmol/L (3.5-5.1) Chloride Level 101mmol/L (98-107) Carbon Dioxide Level 30mmol/L (21-32) Anion Gap 10 (6-14) Blood Urea Nitrogen 24mg/dL (8-26) Creatinine 1.5mg/dL (0.7-1.3) Estimated GFR (Cockcroft-Gault) 48.2 Glucose Level 104mg/dL (70-99) Calcium Level 9.0mg/dL (8.5-10.1) BARBARA HERNANDEZ MD Oct 28, 2016 09:51
[2016-10-28] MEDS ORDERED: POTASSIUM CHLORIDE 20 MEQ TABLET.ER. PO ONE (10:00)
[2016-10-28 10:43] VITALS: BP 110/72
[2016-10-28] MEDS: ANTI-COAG MONITOR BY PHARMACY. MC PRN (11:12)
--- NOTE | 2016-10-28 11:12 | PDOC ---
SUBJECTIVE Subjective Pt. with blood per urethra since hess was discontinued OBJECTIVE Objective blood per urethra Vital Signs Vital Signs Date Time Temp Pulse Resp B/P Pulse Ox O2 Delivery O2 Flow Rate FiO2 10/28/16 10:43 98.3 80 22 110/72 97 BiPAP/CPAP 98.3 10/28/16 08:58 79 114/69 10/28/16 08:57 79 114/69 10/28/16 08:24 97 BiPAP/CPAP 2.0 10/28/16 07:10 98.0 80 18 128/73 98 BiPAP/CPAP 98.0 10/28/16 03:08 98.2 80 20 92/52 92 BiPAP/CPAP 98.2 10/27/16 23:49 98.6 80 18 92/50 92 Room Air 98.6 10/27/16 20:14 Nasal Cannula 2.0 10/27/16 19:22 98.0 93 18 119/77 100 BiPAP/CPAP 98.0 10/27/16 17:41 63 115/99 10/27/16 15:21 BiPAP/CPAP 2.0 10/27/16 15:00 99.1 63 30 115/99 100 BiPAP/CPAP 99.1 10/27/16 12:03 BiPAP/CPAP 2.0 I & O Intake and Output 10/28/16 07:00 Intake Total 500 ml Output Total 4250 ml Balance -3750 ml Intake Oral 500 ml Output Urine Total 4250 ml PHYSICAL EXAM Physical Exam blood per urethra ASSESSMENT/PLAN Assessment/Plan I discussed with pt. and and dr. Mendoza the options, alternatives, benefits, risks, and possible complications of cystoscopy with clot evacuation and possible fulgeration of bleeders. pt. understands and wishes to proceed. Will proceed accordingly today. Problems: COMMENT Lab Laboratory Tests Test 10/27/16 14:50 10/27/16 17:33 10/28/16 04:55 O2 Saturation 98% (92-99) Arterial Blood pH 7.40 (7.35-7.45) Arterial Blood pCO2 at Patient Temp 44mmHg (35-46) Arterial Blood pO2 at Patient Temp 105mmHg (75-108) Arterial Blood HCO3 26mmol/L (21-28) Arterial Blood Base Excess 1mmol/L (-3-3) FiO2 28% Glucose (Fingerstick) 135mg/dL (70-99) White Blood Count 12.2x10^3/uL (4.0-11.0) Red Blood Count 4.12x10^6/uL (4.30-5.70) Hemoglobin 13.8g/dL (13.0-17.5) Hematocrit 41.8% (39.0-53.0) Mean Corpuscular Volume 102fL (79-100) Mean Corpuscular Hemoglobin 34pg (25-35) Mean Corpuscular Hemoglobin Concent 33g/dL (31-37) Red Cell Distribution Width 13.6% (11.5-14.5) Platelet Count 166x10^3/uL (140-400) Neutrophils (%) (Auto) 87% (31-73) Lymphocytes (%) (Auto) 6% (24-48) Monocytes (%) (Auto) 6% (0-9) Eosinophils (%) (Auto) 1% (0-3) Basophils (%) (Auto) 0% (0-3) Neutrophils # (Auto) 10.7x10^3uL (1.8-7.7) Lymphocytes # (Auto) 0.7x10^3/uL (1.0-4.8) Monocytes # (Auto) 0.7x10^3/uL (0.0-1.1) Eosinophils # (Auto) 0.1x10^3/uL (0.0-0.7) Basophils # (Auto) 0.0x10^3/uL (0.0-0.2) Sodium Level 141mmol/L (136-145) Potassium Level 3.2mmol/L (3.5-5.1) Chloride Level 101mmol/L (98-107) Carbon Dioxide Level 30mmol/L (21-32) Anion Gap 10 (6-14) Blood Urea Nitrogen 24mg/dL (8-26) Creatinine 1.5mg/dL (0.7-1.3) Estimated GFR (Cockcroft-Gault) 48.2 Glucose Level 104mg/dL (70-99) Calcium Level 9.0mg/dL (8.5-10.1) BARBARA HERNANDEZ MD Oct 28, 2016 11:11
[2016-10-28] MEDS ORDERED: CEFAZOLIN 2GM PREMIX 50 ML IV ONE ×2 (11:22→11:30)
[2016-10-28] MEDS ORDERED: ROCURONIUM 50 MG/5 ML VIAL. ONE (11:24)
[2016-10-28] MEDS ORDERED: PROPOFOL 20 ML IV ONE (11:24)
[2016-10-28] MEDS ORDERED: SUCCINYLCHOLINE 200 MG/10 ML VIAL. ONE (11:24)
[2016-10-28] MEDS ORDERED: LIDOCAINE 2% 100 MG/5 ML DISP.SYRIN. ONE (11:24)
[2016-10-28] MEDS ORDERED: DIPHENHYDRAMINE 50 MG/ML VIAL IV PRN (11:30)
[2016-10-28] MEDS ORDERED: PROCHLORPERAZINE 10 MG/2 ML VIAL. IV PRN (11:30)
[2016-10-28] MEDS ORDERED: HYDROMORPHONE 2 MG/ML VIAL. IV PRN (11:30)
[2016-10-28] MEDS ORDERED: MORPHINE SULFATE 4 MG/ML DISP.SYRIN. IV PRN (11:30)
[2016-10-28] MEDS ORDERED: FENTANYL PF 100 MCG/2 ML VIAL. IV PRN ×3 (11:30)
[2016-10-28] MEDS ORDERED: MEPERIDINE PF 25 MG/ML VIAL. IV PRN (11:30)
[2016-10-28] MEDS ORDERED: LIDOCAINE 1% 1 ML SYRINGE. ID PRN (11:30)
[2016-10-28] MEDS ORDERED: IV RINGERS,LACTATED 1000ML 1,000 ML IV SCH (11:30)
[2016-10-28] MEDS ORDERED: MIDAZOLAM HCL 2 MG/2 ML VIAL. IV PRN ×2 (11:30)
[2016-10-28] MEDS ORDERED: LIDOCAINE 2% JELLY 6ML IN APPLICATOR. ONE (11:36)
[2016-10-28] MEDS ORDERED: FAMOTIDINE 20 MG/2 ML VIAL ONE (11:37)
[2016-10-28 11:41] LABS: INR 2.3 (0.8-1.1); PROTHROMBIN TIME PATIENT 24.2 SEC (11.7-14.0)
[2016-10-28] MEDS ORDERED: DESFLURANE 31 TO 60 MINUTES IH ONE (12:25)
[2016-10-28] MEDS ORDERED: DEXAMETHASONE SOD PHOS 20 MG/5 ML VIAL. ONE (12:25)
[2016-10-28] MEDS ORDERED: PHENYLEPHRINE in 0.9% NACL PF 1 MG/10 ML DISP.SYRIN. IV ONE (12:35)
[2016-10-28] MEDS ORDERED: NEOSTIGMINE METHYLSULFATE 5 MG/5 ML SYRINGE. ONE (12:44)
[2016-10-28] MEDS ORDERED: GLYCOPYRROLATE 1 MG/5 ML VIAL. ONE (12:44)
[2016-10-28] MEDS ORDERED: ONDANSETRON PF 4 MG/2 ML VIAL. ONE (12:49)
--- NOTE | 2016-10-28 13:14 | PDOC4 ---
Operative Note Operative Note pre-op dx-b;lood per urethra procedure-cystoscopy, clot evacuation, hess catheter placement surgeon-carroll mcfarlane-general Findings-bulbar urethral tear Pt. to PACU in stable condition BARBARA HERNANDEZ MD Oct 28, 2016 13:14
[2016-10-28 14:05] VITALS: BP 124/91
[2016-10-28] MEDS: FUROSEMIDE 40 MG TABLET PO SCH (15:07)
[2016-10-28] MEDS: LOSARTAN POTASSIUM 50 MG TABLET. PO SCH (15:07)
[2016-10-28] MEDS ORDERED: PHENOL ORAL SPRAY 177ML BOTTLE. PO PRN (16:30)
[2016-10-28] MEDS: RIVAROXABAN 10 MG TABLET. PO SCH (17:00)
[2016-10-28] MEDS: BENZOCAINE/MENTHOL LOZENGE. PO PRN ×2 (18:02→21:46)
--- NOTE | 2016-10-28 18:11 | OP ---
DATE OF SURGERY: 10/28/2016 OPERATION: Cystoscopy with clot evacuation and Alejandra catheter placement. SURGEON: Barbara Brewer MD. ANESTHESIA: General. PREOPERATIVE DIAGNOSIS: Blood per urethra. POSTOPERATIVE DIAGNOSIS: Bulbar urethral tear. INDICATIONS: The patient is a very pleasant 56-year-old white male who was admitted with congestive heart failure, had a difficult Alejandra catheter placement. On admission, the patient then had gross blood per urethra after Alejandra catheter removal. I discussed with the patient the option of alternatives, benefits, risks and possible complications of cystoscopy, possible clot evacuation and possible fulguration of bleeders. He understood this and wished to proceed ahead with the operation. DESCRIPTION OF PROCEDURE: After obtaining informed consent, the patient was taken to operating room. After an excellent general anesthetic, the patient was placed in the dorsal lithotomy position. Groin was prepped and draped in sterile fashion. The patient was preloaded with IV antibiotics. Panendoscopy and cystoscopy were then performed with the flexible cystoscope and also the 30-degree lens and 21-Greek cystoscope sheath. Penile urethra appeared within normal limits. In the bulbar urethra, patient was noted to have a tear of the bulbar urethra from approximately the 5 o'clock to the 9 o'clock position with a moderate amount of clot in the bulbar urethra. Fossa which was removed with cold cup forceps, the tear appeared to not have any obvious large blood vessel bleeding, just ooze from the 5 o'clock to the 9 o'clock positions. The patient noted to have a moderate caliber stricture in the deep bulbar urethra just proximal to this area and then external sphincter appeared intact. Prostatic urethra showed moderate bilobar enlargement. Bladder was entered and inspected. Both ureteral orifices were identified and found to be grossly patent. Bladder wall showed some mild hypotonicity and some mild trabeculation, but no bladder tumors were identified, just some cystitis type changes. No bladder stones were identified. Following this, bladder was found to be totally intact. At this point, a floppy tipped ZIPwire was then placed under direct vision through the scope and into the bladder and then the scope removed from the patient and then 16-Greek Councill catheter passed over the ZIPwire into the bladder, clear drainage was noted; therefore, the Alejandra balloon was then inflated and the ZIPwire removed and the Alejandra catheter connected to gravity drainage and secured to the left thigh with a StatLock. The patient tolerated the procedure well, was taken to recovery room in stable condition. We will plan on leaving the Alejandra catheter in place for 2 weeks to allow the bulbar urethral tear to heal and then have the patient follow up with Ambar Hall, nurse practitioner, in the Urology office for voiding trial. BARBARA BREWER MD DR: TRICE/betty JOB#: [id number] / [id number]
[2016-10-28 19:50] VITALS: BP 126/89
[2016-10-28] MEDS: ATORVASTATIN CALCIUM 10 MG TABLET. PO SCH (21:44)
[2016-10-28] MEDS: TAMSULOSIN 0.4 MG CAP.ER.24H. PO SCH (21:44)
[2016-10-28 22:45] VITALS: BP 99/60
[2016-10-29 03:00] VITALS: BP 103/68
--- NOTE | 2016-10-29 05:57 | DS ---
DATE OF DISCHARGE: 10/28/2016 CHIEF COMPLAINT: Shortness of breath. ADMITTING DIAGNOSES: 1. Acute on chronic congestive heart failure, combined systolic and diastolic. 2. Hypertensive emergency. 3. Hematuria due to traumatic Alejandra placement and anticoagulation. 4. Chronic atrial fibrillation. 5. Hypertension. 6. Chronic obstructive pulmonary disease. 7. Morbid obesity. 8. Obstructive sleep apnea. 9. Type 2 diabetes. 10. Major depression. 11. History of cerebrovascular accident with left-sided paralysis. 12. Seizure disorder due to cerebrovascular accident. 13. Dilated cardiomyopathy with AICD in place. 14. Hyperlipidemia. 15. Gouty arthritis. HOSPITAL COURSE: This patient was admitted with early and ongoing congestive heart failure. He was unable to be treated as an outpatient and was admitted for IV diuresis. He also had very high blood pressures and this was treated with IV Cardene. He was weaned down to p.o. medications and was started on new medications of Cozaar 100 mg daily. He did have some hematuria after Alejandra placement, this was controlled and voiding trial was pending at the time of this dictation. He will be discharged to home in the care of his who provides 24-hour care. DISCHARGE MEDICATIONS: Will be as follows: Losartan 100 mg daily, Xarelto 20 mg daily, tamsulosin 0.4 mg daily, albuterol nebulizer treatments q. 6 hours p.r.n., allopurinol 300 mg daily, albuterol metered dose inhaler p.r.n. q. 4 hours, amiodarone 200 mg daily, aspirin 81 mg daily, atorvastatin 10 mg daily, carvedilol 12.5 mg b.i.d., Lasix 60 mg daily, gemfibrozil 600 mg b.i.d., Keppra 1500 mg b.i.d., Synthroid 75 mcg daily, mexiletine 200 mg daily, Percocet 7.5 mg q. 6 hours p.r.n., Protonix 40 mg daily, potassium 40 mEq t.i.d., Zoloft 100 mg daily. PETRA RASHID MD DR: MICHAEL/betty JOB#: [id number] / [id number]
[2016-10-29] MEDS: LEVOTHYROXINE 50 MCG TABLET PO SCH (06:44)
[2016-10-29] MEDS: POTASSIUM CHLORIDE 20 MEQ TABLET.ER. PO SCH ×2 (06:44→14:23)
[2016-10-29 08:00] VITALS: BP 126/73
[2016-10-29] MEDS: INSULIN ASPART 300 UNITS/3 ML INSULN.PEN SQ SCH ×2 (08:00→12:00)
--- NOTE | 2016-10-29 08:20 | PDOC ---
SUBJECTIVE Subjective Pt.feeling ok OBJECTIVE Objective Sore throat from ET tube Vital Signs Vital Signs Date Time Temp Pulse Resp B/P Pulse Ox O2 Delivery O2 Flow Rate FiO2 10/29/16 03:00 97.5 80 22 103/68 97 BiPAP/CPAP 16.0 97.5 10/28/16 22:45 97.7 80 20 99/60 96 BiPAP/CPAP 97.7 10/28/16 20:00 Nasal Cannula 2.0 10/28/16 19:50 98.4 79 20 126/89 97 BiPAP/CPAP 98.4 10/28/16 19:33 99 Nasal Cannula 2.0 10/28/16 15:16 99 Room Air 2.0 10/28/16 15:07 79 124/91 10/28/16 14:05 97.8 80 20 124/91 94 Nasal Cannula 2.0 97.8 10/28/16 13:40 98.2 80 15 124/81 93 Nasal Cannula 2 98.2 10/28/16 13:25 98.2 79 14 121/77 96 Simple Mask 10 98.2 10/28/16 13:10 98.2 80 15 132/76 95 Simple Mask 10 98.2 10/28/16 13:10 Nasal Cannula 2.0 10/28/16 12:06 98.4 80 13 109/63 95 Nasal Cannula 2.0 98.4 10/28/16 10:43 98.3 80 22 110/72 97 BiPAP/CPAP 98.3 10/28/16 08:58 79 114/69 10/28/16 08:57 79 114/69 10/28/16 08:24 97 BiPAP/CPAP 2.0 I & O Intake and Output 10/29/16 07:00 Intake Total 1500 ml Output Total 2150 ml Balance -650 ml Intake Oral 900 ml IV Total 600 ml Output Urine Total 2150 ml # Bowel Movements 1 PHYSICAL EXAM Physical Exam hess in place urine stanley in tubing old blood around meatus ASSESSMENT/PLAN Assessment/Plan keep hess in place for 2 weeks to allow bulbar urethral tear to heal Follow up in office with urology [employer] Ambar Hall for voiding trial in 2 weeks Problems: COMMENT Lab Laboratory Tests Test 10/28/16 11:13 10/28/16 13:17 10/28/16 17:28 10/28/16 21:14 Prothrombin Time 24.2SEC (11.7-14.0) Prothromb Time International Ratio 2.3 (0.8-1.1) Glucose (Fingerstick) 163mg/dL (70-99) 154mg/dL (70-99) 178mg/dL (70-99) Test 10/29/16 08:05 Glucose (Fingerstick) 159mg/dL (70-99) BARBARA HERNANDEZ MD Oct 29, 2016 08:20
[2016-10-29] MEDS: ALBUTEROL SULFATE 2.5 MG/3 ML NEBU. NEB SCH ×3 (08:29→15:40)
[2016-10-29 08:34] LABS: BASO % 0 % (0-3); EOS % 0 % (0-3); HEMATOCRIT 42.1 % (39.0-53.0); HEMOGLOBIN 13.8 g/dL (13.0-17.5); LYMPH # 0.5 x10^3/uL (1.0-4.8); LYMPH % 6 % (24-48); MEAN CORPUSCULAR HEMOGLOBIN 34 pg (25-35); MEAN CORPUSCULAR HGB CONC 33 g/dL (31-37); MEAN CORPUSCULAR VOLUME 103 fL (79-100); MONO % 8 % (0-9); NEUT % 86 % (31-73); PLATELET COUNT 192 x10^3/uL (140-400); RED BLOOD COUNT 4.11 x10^6/uL (4.30-5.70); RED CELL DISTRIBUTION WIDTH 13.3 % (11.5-14.5); WHITE BLOOD COUNT 8.7 x10^3/uL (4.0-11.0)
[2016-10-29 08:49] LABS: CALCIUM 9.5 mg/dL (8.5-10.1); CREATININE 1.6 mg/dL (0.7-1.3); GFR 44.8; POTASSIUM 4.3 mmol/L (3.5-5.1)
[2016-10-29] MEDS: ASPIRIN ENTERIC COATED 81 MG TABLET.DR. PO SCH (08:59)
[2016-10-29] MEDS: AMIODARONE HCL 200 MG TABLET PO SCH (08:59)
[2016-10-29] MEDS: MEXILETINE HCL 200 MG CAPSULE PO SCH (08:59)
[2016-10-29] MEDS: LEVETIRACETAM 500 MG TABLET PO SCH (08:59)
[2016-10-29] MEDS: PANTOPRAZOLE 40 MG TABLET. PO SCH (09:00)
[2016-10-29] MEDS: ALLOPURINOL 300 MG TABLET. PO SCH (09:00)
[2016-10-29] MEDS: FUROSEMIDE 40 MG TABLET PO SCH (09:00)
[2016-10-29] MEDS: SERTRALINE 50 MG TABLET. PO SCH (09:00)
[2016-10-29] MEDS: GEMFIBROZIL 600 MG TABLET. PO SCH (09:00)
[2016-10-29] MEDS: ACETAMINOPHEN 325 MG TABLET. PO SCH ×2 (09:00→13:00)
[2016-10-29] MEDS: LOSARTAN POTASSIUM 50 MG TABLET. PO SCH (09:00)
[2016-10-29] MEDS: CARVEDILOL 12.5 MG TABLET PO SCH (09:00)
--- NOTE | 2016-10-29 10:14 | PDOC ---
PROGRESS NOTES Subjective Subjective Patient says he is doing better today. He denies chest pain. He endorses some shortness of breath but still says this is at his baseline. He has a new hess in and bleeding is under control at this time. Objective Objective Vital Signs Date Time Temp Pulse Resp B/P Pulse Ox O2 Delivery O2 Flow Rate FiO2 10/29/16 09:00 80 126/73 10/29/16 08:32 94 Nasal Cannula 2.0 10/29/16 08:00 97.4 20 97.4 Intake and Output 10/29/16 07:00 Intake Total 1500 ml Output Total 2150 ml Balance -650 ml Intake Oral 900 ml IV Total 600 ml Output Urine Total 2150 ml # Bowel Movements 1 Physical Exam Physical Exam Heart sounds muffled. Heart: Regular rate, Normal S1, Normal S2, No murmurs Lungs: Clear to auscultation Assessment Assessment Problems Medical Problems: (1) Acute on chronic systolic heart failure Status: Acute (2) CHF exacerbation Status: Acute Plan Plan of Care Agree with recommendations of Urology. Continue diuretics. Patient may go home. Discharge on the current dose of carvedilol Comment Review of Relevant I have reviewed the following items génesis (where applicable) has been applied. Labs Laboratory Tests Test 10/27/16 12:33 10/27/16 14:50 10/27/16 17:33 10/27/16 21:02 Glucose (Fingerstick) 143mg/dL (70-99) 135mg/dL (70-99) 146mg/dL (70-99) O2 Saturation 98% (92-99) Arterial Blood pH 7.40 (7.35-7.45) Arterial Blood pCO2 at Patient Temp 44mmHg (35-46) Arterial Blood pO2 at Patient Temp 105mmHg (75-108) Arterial Blood HCO3 26mmol/L (21-28) Arterial Blood Base Excess 1mmol/L (-3-3) FiO2 28% Test 10/28/16 04:55 10/28/16 07:50 10/28/16 11:13 10/28/16 13:17 White Blood Count 12.2x10^3/uL (4.0-11.0) Red Blood Count 4.12x10^6/uL (4.30-5.70) Hemoglobin 13.8g/dL (13.0-17.5) Hematocrit 41.8% (39.0-53.0) Mean Corpuscular Volume 102fL (79-100) Mean Corpuscular Hemoglobin 34pg (25-35) Mean Corpuscular Hemoglobin Concent 33g/dL (31-37) Red Cell Distribution Width 13.6% (11.5-14.5) Platelet Count 166x10^3/uL (140-400) Neutrophils (%) (Auto) 87% (31-73) Lymphocytes (%) (Auto) 6% (24-48) Monocytes (%) (Auto) 6% (0-9) Eosinophils (%) (Auto) 1% (0-3) Basophils (%) (Auto) 0% (0-3) Neutrophils # (Auto) 10.7x10^3uL (1.8-7.7) Lymphocytes # (Auto) 0.7x10^3/uL (1.0-4.8) Monocytes # (Auto) 0.7x10^3/uL (0.0-1.1) Eosinophils # (Auto) 0.1x10^3/uL (0.0-0.7) Basophils # (Auto) 0.0x10^3/uL (0.0-0.2) Sodium Level 141mmol/L (136-145) Potassium Level 3.2mmol/L (3.5-5.1) Chloride Level 101mmol/L (98-107) Carbon Dioxide Level 30mmol/L (21-32) Anion Gap 10 (6-14) Blood Urea Nitrogen 24mg/dL (8-26) Creatinine 1.5mg/dL (0.7-1.3) Estimated GFR (Cockcroft-Gault) 48.2 Glucose Level 104mg/dL (70-99) Calcium Level 9.0mg/dL (8.5-10.1) Glucose (Fingerstick) 104mg/dL (70-99) 163mg/dL (70-99) Prothrombin Time 24.2SEC (11.7-14.0) Prothromb Time International Ratio 2.3 (0.8-1.1) Test 10/28/16 17:28 10/28/16 21:14 10/29/16 08:05 10/29/16 08:15 Glucose (Fingerstick) 154mg/dL (70-99) 178mg/dL (70-99) 159mg/dL (70-99) White Blood Count 8.7x10^3/uL (4.0-11.0) Red Blood Count 4.11x10^6/uL (4.30-5.70) Hemoglobin 13.8g/dL (13.0-17.5) Hematocrit 42.1% (39.0-53.0) Mean Corpuscular Volume 103fL (79-100) Mean Corpuscular Hemoglobin 34pg (25-35) Mean Corpuscular Hemoglobin Concent 33g/dL (31-37) Red Cell Distribution Width 13.3% (11.5-14.5) Platelet Count 192x10^3/uL (140-400) Neutrophils (%) (Auto) 86% (31-73) Lymphocytes (%) (Auto) 6% (24-48) Monocytes (%) (Auto) 8% (0-9) Eosinophils (%) (Auto) 0% (0-3) Basophils (%) (Auto) 0% (0-3) Neutrophils # (Auto) 7.4x10^3uL (1.8-7.7) Lymphocytes # (Auto) 0.5x10^3/uL (1.0-4.8) Monocytes # (Auto) 0.7x10^3/uL (0.0-1.1) Eosinophils # (Auto) 0.0x10^3/uL (0.0-0.7) Basophils # (Auto) 0.0x10^3/uL (0.0-0.2) Sodium Level 138mmol/L (136-145) Potassium Level 4.3mmol/L (3.5-5.1) Chloride Level 100mmol/L (98-107) Carbon Dioxide Level 30mmol/L (21-32) Anion Gap 8 (6-14) Blood Urea Nitrogen 30mg/dL (8-26) Creatinine 1.6mg/dL (0.7-1.3) Estimated GFR (Cockcroft-Gault) 44.8 Glucose Level 169mg/dL (70-99) Calcium Level 9.5mg/dL (8.5-10.1) Laboratory Tests Test 10/28/16 11:13 10/28/16 13:17 10/28/16 17:28 10/28/16 21:14 Prothrombin Time 24.2SEC (11.7-14.0) Prothromb Time International Ratio 2.3 (0.8-1.1) Glucose (Fingerstick) 163mg/dL (70-99) 154mg/dL (70-99) 178mg/dL (70-99) Test 10/29/16 08:05 10/29/16 08:15 Glucose (Fingerstick) 159mg/dL (70-99) White Blood Count 8.7x10^3/uL (4.0-11.0) Red Blood Count 4.11x10^6/uL (4.30-5.70) Hemoglobin 13.8g/dL (13.0-17.5) Hematocrit 42.1% (39.0-53.0) Mean Corpuscular Volume 103fL (79-100) Mean Corpuscular Hemoglobin 34pg (25-35) Mean Corpuscular Hemoglobin Concent 33g/dL (31-37) Red Cell Distribution Width 13.3% (11.5-14.5) Platelet Count 192x10^3/uL (140-400) Neutrophils (%) (Auto) 86% (31-73) Lymphocytes (%) (Auto) 6% (24-48) Monocytes (%) (Auto) 8% (0-9) Eosinophils (%) (Auto) 0% (0-3) Basophils (%) (Auto) 0% (0-3) Neutrophils # (Auto) 7.4x10^3uL (1.8-7.7) Lymphocytes # (Auto) 0.5x10^3/uL (1.0-4.8) Monocytes # (Auto) 0.7x10^3/uL (0.0-1.1) Eosinophils # (Auto) 0.0x10^3/uL (0.0-0.7) Basophils # (Auto) 0.0x10^3/uL (0.0-0.2) Sodium Level 138mmol/L (136-145) Potassium Level 4.3mmol/L (3.5-5.1) Chloride Level 100mmol/L (98-107) Carbon Dioxide Level 30mmol/L (21-32) Anion Gap 8 (6-14) Blood Urea Nitrogen 30mg/dL (8-26) Creatinine 1.6mg/dL (0.7-1.3) Estimated GFR (Cockcroft-Gault) 44.8 Glucose Level 169mg/dL (70-99) Calcium Level 9.5mg/dL (8.5-10.1) Medications Current Medications Aspirin (Children'S Aspirin) 324 mg 1X ONCE PO Last administered on 10/25/16 09:52; Start 10/25/16 at 09:45; Stop 10/25/16 at 09:46; Status DC Furosemide (Lasix) 40 mg 1X ONCE IVP Last administered on 10/25/16 11:01; Start 10/25/16 at 10:30; Stop 10/25/16 at 10:31; Status DC Ondansetron HCl (Zofran) 4 mg PRN Q8HRS PRN IV NAUSEA/VOMITING; Start 10/25/16 at 11:00; Stop 10/26/16 at 10:59; Status DC Morphine Sulfate 2 mg PRN Q2HR PRN IV PAIN; Start 10/25/16 at 11:00; Stop 10/26 at 10:59; Status DC Acetaminophen (Tylenol) 650 mg PRN Q4HRS PRN PO FEVER; Start 10/25/16 at 11:00 ; Stop 10/26/16 at 10:59; Status DC Albuterol/ Ipratropium 3 ml 3 ml RTQID NEB Last administered on 10/26/16 08:00 ; Start 10/25/16 at 12:00; Stop 10/26/16 at 11:59; Status DC Nicardipine HCl/ Sodium Chloride (Cardene/Iv Sodium Chloride 0.9% 250ml) 270 ml @ 0 mls/hr CONT PRN IV SEE I/O RECORD Last administered on 10/26/16 12:45; Start 10/25/16 at 17:45 Furosemide (Lasix) 40 mg BID@08,20 IVP Last administered on 10/27/16 20:30; Start 10/25/16 at 20:00; Stop 10/28/16 at 11:47; Status DC Acetaminophen (Tylenol) 650 mg QID PO Last administered on 10/25/16 21:11; Start 10/25/16 at 21:00 Allopurinol (Zyloprim) 300 mg DAILY PO Last administered on 10/29/16 09:00; Start 10/26/16 at 09:00 Amiodarone HCl (Cordarone) 200 mg DAILY PO Last administered on 10/29/16 08:59 ; Start 10/26/16 at 09:00 Aspirin (Ecotrin) 81 mg DAILY PO Last administered on 10/29/16 08:59; Start at 09:00 Atorvastatin Calcium (Lipitor) 10 mg HS PO Last administered on 10/28/16 21:44 ; Start 10/25/16 at 21:00 Carvedilol (Coreg) 12.5 mg BIDWMEALS PO Last administered on 10/26/16 10:34; Start 10/25/16 at 18:30; Stop 10/26/16 at 13:25; Status DC Furosemide (Lasix) 60 mg DAILY PO ; Start 10/26/16 at 09:00; Status Cancel Gemfibrozil (Lopid) 600 mg BID PO Last administered on 10/29/16 09:00; Start 10/25/16 at 21:00 Levetiracetam (Keppra) 1,500 mg BID PO Last administered on 10/29/16 08:59; Start 10/25/16 at 21:00 Levothyroxine Sodium (Synthroid) 50 mcg DAILY07 PO Last administered on 06:44; Start 10/26/16 at 07:00 Mexiletine HCl (Mexitil) 200 mg DAILY PO Last administered on 10/29/16 08:59; Start 10/26/16 at 09:00 Oxycodone/ Acetaminophen (Percocet 7.5/ 325) 1 tab PRN QID PRN PO PAIN; Start 10/25/16 at 17:45 Pantoprazole Sodium (Protonix) 40 mg DAILYAC PO Last administered on 10/29/16 09:00; Start 10/26/16 at 07:30 Albuterol Sulfate (Ventolin Neb Soln) 2.5 mg RTQID NEB Last administered on 08:29; Start 10/25/16 at 20:00 Albuterol Sulfate (Ventolin Neb Soln) 2.5 mg PRN Q6HRS PRN NEB SHORTNESS OF BREATH Last administered on 10/26/16 05:14; Start 10/25/16 at 18:00 Potassium Chloride (Klor-Con) 40 meq CHV240 PO Last administered on 10/29/16 06:44; Start 10/26/16 at 18:30 Sertraline HCl (Zoloft) 100 mg BID PO Last administered on 10/29/16 09:00; Start 10/25/16 at 21:00 Rivaroxaban (Xarelto) 20 mg DAILYWSUP PO Last administered on 10/27/16 17:42; Start 10/25/16 at 18:30 Insulin Aspart (Novolog) 0-7 UNITS TIDWMEALS SQ ; Start 10/26/16 at 12:00 Dextrose 12.5 gm PRN Q15MIN PRN IV SEE COMMENTS; Start 10/26/16 at 11:15 Carvedilol (Coreg) 25 mg BIDWMEALS PO Last administered on 10/29/16 09:00; Start 10/26/16 at 17:00 Losartan Potassium (Cozaar) 100 mg DAILY PO Last administered on 10/29/16 09: 00; Start 10/26/16 at 14:45 Tamsulosin HCl (Flomax) 0.4 mg QHS PO Last administered on 10/28/16 21:44; Start 10/26/16 at 21:00 Carvedilol (Coreg) 12.5 mg 1X ONCE PO Last administered on 10/26/16 15:21; Start 10/26/16 at 14:45; Stop 10/26/16 at 14:46; Status DC Potassium Chloride (Klor-Con) 40 meq 1X ONCE PO Last administered on 15:06; Start 10/28/16 at 10:00; Stop 10/28/16 at 10:01; Status DC Info 1 each 1 each PRN DAILY PRN MC SEE COMMENTS Last administered on 11:12; Start 10/28/16 at 11:15 Cefazolin Sodium/ Dextrose (Ancef 2gm Premix) 50 ml @ As Directed STK-MED ONCE IV ; Start 10/28/16 at 11:22; Stop 10/28/16 at 11:23; Status DC Fentanyl Citrate (Fentanyl 2ml Vial) 50 mcg PRN Q5MIN PRN IV Acute Pain; Start 10/28/16 at 11:30; Stop 10/28/16 at 21:00; Status DC Morphine Sulfate 4 mg PRN Q10MIN PRN IV Moderate Pain; Start 10/28/16 at 11:30 ; Stop 10/28/16 at 21:00; Status DC Hydromorphone HCl (Dilaudid) 0.4 mg PRN Q10MIN PRN IV Moderate to severe pain; Start 10/28/16 at 11:30; Stop 10/28/16 at 21:00; Status DC Meperidine HCl (Demerol) 12.5 mg PRN Q5MIN PRN IV SHIVERING; Start 10/28/16 at 11:30; Stop 10/28/16 at 21:00; Status DC Prochlorperazine Edisylate (Compazine) 5 mg PRN Q6HRS PRN IV Nausea/Vomiting, 1st Choice; Start 10/28/16 at 11:30; Stop 10/28/16 at 21:00; Status DC Diphenhydramine HCl (Benadryl) 12.5 mg PRN Q2HR PRN IV ITCHING; Start 10/28/16 at 11:30; Stop 10/28/16 at 21:00; Status DC Midazolam HCl (Versed) 2 mg PRN 1X PRN IV PRIOR TO PROCEDURE; Start 10/28/16 at 11:30; Stop 10/28/16 at 21:00; Status DC Midazolam HCl (Versed) 1 mg PRN 1X PRN IV PRIOR TO PROCEDURE; Start 10/28/16 at 11:30; Stop 10/28/16 at 21:00; Status DC Fentanyl Citrate (Fentanyl 2ml Vial) 25 mcg PRN Q5MIN PRN IV X 2 DOSES FOR PAIN ; Start 10/28/16 at 11:30; Stop 10/28/16 at 21:00; Status DC Fentanyl Citrate 50 mcg 50 mcg PRN Q5MIN PRN IV X 2 DOSES FOR PAIN; Start 10/28 at 11:30; Stop 10/28/16 at 21:00; Status DC Lactated Ringer's (Iv Lactated Ringers) 1,000 ml @ 125 mls/hr Q8H IV Last administered on 10/28/16 12:00; Start 10/28/16 at 11:30; Stop 10/28/16 at 18:12 ; Status DC Lidocaine HCl 2 ml 2 ml 1X PRN PRN ID IV START Last administered on 10/28/16 12:00; Start 10/28/16 at 11:30; Stop 10/28/16 at 21:00; Status DC Propofol (Diprivan) 20 ml @ As Directed STK-MED ONCE IV ; Start 10/28/16 at 11: 24; Stop 10/28/16 at 11:25; Status DC Lidocaine HCl 100 mg STK-MED ONCE .ROUTE ; Start 10/28/16 at 11:24; Stop at 11:25; Status DC Succinylcholine Chloride (Anectine) 200 mg STK-MED ONCE .ROUTE ; Start 10/28/16 at 11:24; Stop 10/28/16 at 11:25; Status DC Rocuronium [place] 50 mg 50 mg STK-MED ONCE .ROUTE ; Start 10/28/16 at 11:24; Stop 10/28/16 at 11:25; Status DC Cefazolin Sodium/ Dextrose (Ancef 2gm Premix) 50 ml @ 100 mls/hr 1X ONCE IV Last administered on 10/28/16 12:20; Start 10/28/16 at 11:30; Stop 10/28/16 at 11:59; Status DC Lidocaine HCl (Glydo (Lidocaine) Jelly) 6 yue STK-MED ONCE .ROUTE ; Start at 11:36; Stop 10/28/16 at 11:37; Status DC Famotidine (Pepcid) 20 mg STK-MED ONCE .ROUTE ; Start 10/28/16 at 11:37; Stop at 11:38; Status DC Furosemide (Lasix) 40 mg DAILY PO Last administered on 10/29/16 09:00; Start 10/28/16 at 12:00 Dexamethasone Sodium Phosphate (Decadron) 20 mg STK-MED ONCE .ROUTE ; Start at 12:25; Stop 10/28/16 at 12:26; Status DC Desflurane (Suprane) 30 ml STK-MED ONCE IH ; Start 10/28/16 at 12:25; Stop 10/28 at 12:26; Status DC Phenylephrine HCl 1 mg STK-MED ONCE IV ; Start 10/28/16 at 12:35; Stop 10/28/16 at 12:36; Status DC Glycopyrrolate (Robinul) 1 mg STK-MED ONCE .ROUTE ; Start 10/28/16 at 12:44; Stop 10/28/16 at 12:45; Status DC Neostigmine Methylsulfate 5 mg STK-MED ONCE .ROUTE ; Start 10/28/16 at 12:44; Stop 10/28/16 at 12:45; Status DC Ondansetron HCl (Zofran) 4 mg STK-MED ONCE .ROUTE ; Start 10/28/16 at 12:49; Stop 10/28/16 at 12:50; Status DC Throat Lozenges (Cepacol Sore Throat Lozenge) 1 reilly PRN Q2HRS PRN PO SORE THROAT Last administered on 10/28/16 21:46; Start 10/28/16 at 16:30 Throat Lozenges (Chloraseptic) 1 spray PRN Q2HR PRN PO SORE THROAT Last administered on 10/28/16 18:02; Start 10/28/16 at 16:30 Active Scripts Active Lasix (Furosemide) 20 Mg Tablet 3 Tab PO DAILY Synthroid (Levothyroxine Sodium) 75 Mcg Tablet 75 Mcg PO DAILY07 Amiodarone Hcl 200 Mg Tablet 200 Mg PO DAILY Mexiletine Hcl 200 Mg Capsule 200 Mg PO DAILY K-Tab ER (Potassium Chloride) 20 Meq Tablet.er 40 Meq PO [id number] Keppra (Levetiracetam) 500 Mg Tablet 1,500 Mg PO BID Proair Hfa Inhaler (Albuterol Sulfate) 8.5 Gm Hfa.aer.ad 1 Puff INH PRN Q6HRS PRN Reported Carvedilol 12.5 Mg Tablet 1 Tab PO BID Levothyroxine Sodium 50 Mcg Tablet 1 Tab PO DAILY Warfarin Sodium 5 Mg Tablet 1 Tab PO DAILY Atorvastatin Calcium 10 Mg Tablet 10 Mg PO HS Gemfibrozil 600 Mg Tablet 1 Tab PO BID Aspir 81 (Aspirin) 81 Mg Tablet.dr 1 Tab PO DAILY Percocet 7.5-325 Mg Tablet (Oxycodone/Acetaminophen) 1 Each Tablet 1 Tab PO PRN QID PRN Tylenol (Acetaminophen) 325 Mg Tablet 1-2 Tab PO QID Protonix (Pantoprazole Sodium) 40 Mg Tablet.dr 1 Tab PO DAILY Albuterol Sulfate Neb Soln (Albuterol Sulfate) 0.63 Mg/3 Ml Vial.neb 1 Vial NEB QID Zoloft (Sertraline Hcl) 100 Mg Tablet 100 Mg PO BID Allopurinol 300 Mg Tablet 300 Mg PO DAILY Vitals/I & O Vital Sign - Last 24 Hours 10/28/16 10/28/16 10/28/16 10/28/16 10:43 12:06 13:10 13:10 Temp 98.3 98.4 98.2 98.3 98.4 98.2 Pulse 80 80 80 Resp 15 B/P 110/72 109/63 132/76 Pulse Ox 97 95 95 O2 Delivery BiPAP/CPAP Nasal Cannula Nasal Cannula Simple Mask O2 Flow Rate 2.0 2.0 10 10/28/16 10/28/16 10/28/16 10/28/16 13:25 13:40 14:05 15:07 Temp 98.2 98.2 97.8 98.2 98.2 97.8 Pulse 79 80 80 79 Resp 14 15 20 B/P 121/77 124/81 124/91 124/91 Pulse Ox 96 93 94 O2 Delivery Simple Mask Nasal Cannula Nasal Cannula O2 Flow Rate 10 2 2.0 10/28/16 10/28/16 10/28/16 10/28/16 15:16 19:33 19:50 20:00 Temp 98.4 98.4 Pulse 79 Resp 20 B/P 126/89 Pulse Ox 99 99 97 O2 Delivery Room Air Nasal Cannula BiPAP/CPAP Nasal Cannula O2 Flow Rate 2.0 2.0 2.0 10/28/16 10/29/16 10/29/16 10/29/16 22:45 03:00 08:00 08:00 Temp 97.7 97.5 97.4 97.7 97.5 97.4 Pulse 80 80 80 Resp 20 22 20 B/P 99/60 103/68 126/73 Pulse Ox 96 97 94 O2 Delivery BiPAP/CPAP BiPAP/CPAP Room Air Bi-pap O2 Flow Rate 16.0 10/29/16 10/29/16 10/29/16 10/29/16 08:32 08:59 09:00 09:00 Pulse 80 80 80 B/P 126/73 126/73 126/73 Pulse Ox 94 O2 Delivery Nasal Cannula O2 Flow Rate 2.0 Intake and Output 10/28/16 10/28/16 10/29/16 15:00 23:00 07:00 Intake Total 600 ml 500 ml 400 ml Output Total 400 ml 300 ml 1450 ml Balance 200 ml 200 ml -1050 ml DEDRICK CHENG MD Oct 29, 2016 10:14
[2016-10-29 11:00] VITALS: BP 136/87
[2016-10-29] MEDS: ANTI-COAG MONITOR BY PHARMACY. MC PRN (13:11)
[2016-10-29 13:44] LABS: PLT ESTIMATE ADEQUATE (ADEQUATE)
[2016-10-29 15:00] VITALS: BP 115/75
--- NOTE | 2016-10-30 08:38 | DS ---
DATE OF DISCHARGE: 10/29/2016 ADDENDUM The patient's discharge was delayed due to bleeding from his prostate and bladder. The patient failed voiding trial and had copious amounts of bleeding due to traumatic Alejandra placement. The patient was evaluated by Dr. Brewer and taken to the OR to control bleeding. This was done and Alejandra was reinserted. Urology plan is for patient to have Alejandra remain in place for 4-7 days and have a voiding trial in the office as an outpatient. At this point, the patient was back to baseline and will be discharged with Alejandra in place and continue previous orders as dictated on previous discharge. PETRA RASHID MD DR: MICHAEL/betty JOB#: [id number] / [id number]
== END 2016-10-29 16:50 | disposition home or self-care (01) | DRG 291 ==
LOC: ER 09:11 → ED HOLD 10:50 → 2 NORTH 16:29
PROVIDERS: ADMIT Family Medicine; ATTEND Family Medicine
PROC: 5A09557 Assistance with Respiratory Ventilation, Greater than 96 Consecutive Hours, Continuous Positive Airway Pressure (ICD-10-PCS; 2016-10-25)
PROC: 0T9B80Z Drainage of Bladder with Drainage Device, Via Natural or Artificial Opening Endoscopic (ICD-10-PCS; 2016-10-28)
PROC: 0TCD8ZZ Extirpation of Matter from Urethra, Via Natural or Artificial Opening Endoscopic (ICD-10-PCS; principal; 2016-10-28 12:00)
DX: I50.43 Acute on chronic combined systolic (congestive) and diastolic (congestive) heart failure (principal); J96.20 Acute and chronic respiratory failure, unspecified whether with hypoxia or hypercapnia; T83.83XA Hemorrhage due to genitourinary prosthetic devices, implants and grafts, initial encounter; I42.0 Dilated cardiomyopathy; Z68.43 Body mass index [BMI] 50.0-59.9, adult; I16.1 Hypertensive emergency; I69.354 Hemiplegia and hemiparesis following cerebral infarction affecting left non-dominant side; S37.90XA Unspecified injury of unspecified urinary and pelvic organ, initial encounter; D68.32 Hemorrhagic disorder due to extrinsic circulating anticoagulants; E11.9 Type 2 diabetes mellitus without complications; E66.01 Morbid (severe) obesity due to excess calories; E78.5 Hyperlipidemia, unspecified; F32.9 Major depressive disorder, single episode, unspecified; G40.909 Epilepsy, unspecified, not intractable, without status epilepticus; G47.33 Obstructive sleep apnea (adult) (pediatric); I11.0 Hypertensive heart disease with heart failure; I25.10 Atherosclerotic heart disease of native coronary artery without angina pectoris; I48.2 Chronic atrial fibrillation; Y84.6 Urinary catheterization as the cause of abnormal reaction of the patient, or of later complication, without mention of misadventure at the time of the procedure; J44.9 Chronic obstructive pulmonary disease, unspecified; J45.909 Unspecified asthma, uncomplicated; M10.00 Idiopathic gout, unspecified site; N28.1 Cyst of kidney, acquired; Z79.01 Long term (current) use of anticoagulants; Z90.49 Acquired absence of other specified parts of digestive tract; Z82.3 Family history of stroke; Z82.49 Family history of ischemic heart disease and other diseases of the circulatory system; Z83.3 Family history of diabetes mellitus; Z95.810 Presence of automatic (implantable) cardiac defibrillator; R31.9 Hematuria, unspecified
CPT/HCPCS: 36415; 36600; 51702; 71010; 76770; 80048; 82805; 82947; 83735; 83880; 84484; 85007; 85027; 85610; 93005; 94250; 94640; 94760; 96374; C1769; J0330; J0690; J1100; J1815; J1940; J2370; J2405; J2704; J2710; J3490; J7050; J7120; J7620; S0028; 99285-25; J2001; J7030

== ENCOUNTER 2016-12-20 00:26 | Emergency (ER) | payer MEDICARE ==
[~2016-12-20] VITALS: Ht 177.8 cm; Wt 147.9 kg
[~2016-12-20 00:26] MED LIST changes: +LOSA50TA2 PO; +TAMS0.4C97 PO
[2016-12-20 00:48] VITALS: BP 168/84
[2016-12-20] MEDS ORDERED: IPRATRPIUM/ALBUTEROL 0.5/2.5MG 3 ML NEBU. NEB ONE (01:00)
[2016-12-20 01:17] LABS: BASO % 1 % (0-3); EOS % 6 % (0-3); HEMATOCRIT 45.7 % (39.0-53.0); HEMOGLOBIN 15.1 g/dL (13.0-17.5); LYMPH # 1.3 x10^3/uL (1.0-4.8); LYMPH % 16 % (24-48); MEAN CORPUSCULAR HEMOGLOBIN 33 pg (25-35); MEAN CORPUSCULAR HGB CONC 33 g/dL (31-37); MEAN CORPUSCULAR VOLUME 101 fL (79-100); MONO % 9 % (0-9); NEUT % 69 % (31-73); PLATELET COUNT 207 x10^3/uL (140-400); RED BLOOD COUNT 4.54 x10^6/uL (4.30-5.70); RED CELL DISTRIBUTION WIDTH 13.5 % (11.5-14.5); WHITE BLOOD COUNT 8.2 x10^3/uL (4.0-11.0)
[2016-12-20 01:23] LABS: CALCIUM 8.9 mg/dL (8.5-10.1); CREATININE 1.1 mg/dL (0.7-1.3); POTASSIUM 3.6 mmol/L (3.5-5.1)
[2016-12-20 02:15] LABS: INR 2.1 (0.8-1.1)
[2016-12-20] MEDS ORDERED: FUROSEMIDE 40 MG/4 ML VIAL. IVP ONE (02:15)
--- NOTE | 2016-12-20 02:25 | PHYS DOC ---
Past Medical History Past Medical History: A-Fib, CAD, CHF, COPD, CVA, Hypertension, Seizure, Stroke Additional Past Medical Histor: SLEEP APNEA, GOUT Past Surgical History: Cholecystectomy, Pacemaker Additional Past Surgical Histo: with defibrillator Alcohol Use: None Drug Use: None Adult General Chief Complaint Chief Complaint: SHORTNESS OF BREATH HPI HPI Patient is a 56 year old male who presents with for dyspnea and dry cough for the past few days. Notes some orthopnea as well. states he has slight bilateral leg swelling. States he is taking albuterol at home with intermittent improvement of symptoms. He had a neb by EMS that also helped with his symptoms. He denies chest pain, hemoptysis, f/c, n/v, palpitations, diaphoresis, abd pain, leg pain, rhinorrhea, nasal congestion, sore throat. Review of Systems Review of Systems Constitutional: Denies fever or chills [] Eyes: Denies change in visual acuity, redness, or eye pain [] HENT: Denies nasal congestion or sore throat [] Respiratory: Has cough and shortness of breath [] Cardiovascular: No additional information not addressed in HPI [] GI: Denies abdominal pain, nausea, vomiting, bloody stools or diarrhea [] : Denies dysuria or hematuria [] Musculoskeletal: Denies back pain or joint pain [] Integument: Denies rash or skin lesions [] Neurologic: Denies headache, focal weakness or sensory changes [] Endocrine: Denies polyuria or polydipsia [] Current Medications Current Medications Current Medications Medications (Trade) Dose Ordered Sig/Abhay Start Time Stop Time Status Last Admin Dose Admin Albuterol/ Ipratropium (Duoneb) 3 ml 1X ONCE 12/20/16 01:00 12/20/16 01:01 DC 12/20/16 01:03 3 ML Furosemide (Lasix) 60 mg 1X ONCE 12/20/16 02:15 12/20/16 02:16 DC 12/20/16 02:23 60 MG Allergies Allergies Allergies Coded Allergies Type Severity Reaction Last Updated Verified No Known Drug Allergies 10/25/16 No Physical Exam Physical Exam Constitutional: Well developed, well nourished, no acute distress, non-toxic appearance. [] HENT: Normocephalic, atraumatic, bilateral external ears normal, oropharynx moist, no oral exudates, nose normal. [] Eyes: PERRLA, EOMI. [] Neck: Normal range of motion, supple, no stridor. [] Cardiovascular:Heart rate regular rhythm [] Lungs & Thorax: Bilateral breath sounds clear to auscultation [] Abdomen: Bowel sounds normal, soft, no tenderness. [] Skin: Warm, dry, no erythema, no rash. [] Back: No tenderness, no CVA tenderness. [] Extremities: No tenderness, ROM intact, no edema. [] Neurologic: Alert and oriented X 3, normal sensory function, chronic left sided weakness due to stroke. [] Psychologic: Affect normal, judgement normal, mood normal. [] Current Patient Data Vital Signs Vital Signs Date Time Temp Pulse Resp B/P Pulse Ox O2 Delivery O2 Flow Rate FiO2 12/20/16 02:30 80 95 Room Air 12/20/16 00:48 98.8 22 168/84 98.8 Lab Values Laboratory Tests Test 12/20/16 00:36 White Blood Count 8.2x10^3/uL (4.0-11.0) Red Blood Count 4.54x10^6/uL (4.30-5.70) Hemoglobin 15.1g/dL (13.0-17.5) Hematocrit 45.7% (39.0-53.0) Mean Corpuscular Volume 101fL (79-100) H Mean Corpuscular Hemoglobin 33pg (25-35) Mean Corpuscular Hemoglobin Concent 33g/dL (31-37) Red Cell Distribution Width 13.5% (11.5-14.5) Platelet Count 207x10^3/uL (140-400) Neutrophils (%) (Auto) 69% (31-73) Lymphocytes (%) (Auto) 16% (24-48) L Monocytes (%) (Auto) 9% (0-9) Eosinophils (%) (Auto) 6% (0-3) H Basophils (%) (Auto) 1% (0-3) Neutrophils # (Auto) 5.7x10^3uL (1.8-7.7) Lymphocytes # (Auto) 1.3x10^3/uL (1.0-4.8) Monocytes # (Auto) 0.8x10^3/uL (0.0-1.1) Eosinophils # (Auto) 0.5x10^3/uL (0.0-0.7) Basophils # (Auto) 0.0x10^3/uL (0.0-0.2) Prothrombin Time 22.0SEC (11.7-14.0) H Prothrombin Time INR 2.1 (0.8-1.1) H Sodium Level 146mmol/L (136-145) H Potassium Level 3.6mmol/L (3.5-5.1) Chloride Level 108mmol/L (98-107) H Carbon Dioxide Level 31mmol/L (21-32) Anion Gap 7 (6-14) Blood Urea Nitrogen 15mg/dL (8-26) Creatinine 1.1mg/dL (0.7-1.3) Estimated GFR (Cockcroft-Gault) 69.0 Glucose Level 157mg/dL (70-99) H Calcium Level 8.9mg/dL (8.5-10.1) Troponin I Quantitative 0.124ng/mL (0.000-0.055) OX-Qpr-L-Type Natriuretic Peptide 1434pg/mL (0-124) H Laboratory Tests 12/20/16 00:36 Laboratory Tests 12/20/16 00:36 EKG EKG EKG as interpreted by me as ventricularly paced tachycardia, rate 119 Radiology/Procedures Radiology/Procedures Chest x-ray as interpreted by me with mild bilateral pulmonary edema, stable cardiomegaly Course & Med Decision Making Course & Med Decision Making Pertinent Labs and Imaging studies reviewed. (See chart for details) Has chronic elevation in troponin seen in recent evaluations as well. Continues without chest pain. Otherwise symptoms, lab, and imaging concerning for mild CHF exacerbation. Offered admission, but patient and would like a dose of lasix and try to go home. They will call PCP and Commercial Insurance Underwriter for close follow up. Strict return precautions given. He and understand and agree with plan. Dragon Disclaimer Dragon Disclaimer This electronic medical record was generated, in whole or in part, using a voice recognition dictation system. Departure Departure Impression: Primary Impression: CHF exacerbation Disposition: HOME, SELF-CARE Condition: STABLE Referrals: PETRA RASHID MD (PCP) Patient Instructions: Heart Failure, [id number] Additional Instructions: Follow-up with your primary care doctor and magisterial district judge within one week. Please call for appointment. Return for any concerns. Problem Qualifiers Primary Impression: CHF exacerbation Congestive heart failure type: unspecified congestive heart failure type Qualified Code: I50.9 - Heart failure, unspecified Alexsandra MENESES MD Dec 20, 2016 02:25
--- NOTE | 2016-12-20 07:15 | EKG ---
[facility] [address] [place] [id number] Test Date: 2016-12-20 Test Time: 00:37:11 Pat Name: SIMRAN THOMAS Department: Room: Gender: M General Service Technician: : 1960 Requested By: Alexsandra MENESES Order Number: [id number] Reading MD: Measurements Intervals [place] Rate: 119 P: DC: QRS: -106 QRSD: 216 T: 86 QT: 342 QTc: 482 Interpretive Statements IRREGULAR RHYTHM, NO P-WAVE FOUND VENTRICULAR PREMATURE COMPLEX(ES) ABNORMAL RIGHT SUPERIOR AXIS DEVIATION NON SPECIFIC INTRAVENTRICULAR BLOCK QRS(T) CONTOUR ABNORMALITY CONSISTENT WITH ANTERIOR INFARCT PROBABLY OLD CONSISTENT WITH INFERIOR INFARCT PROBABLY OLD ABNORMAL ECG RI6.01 No previous ECG available for comparison
--- NOTE | 2016-12-20 07:21 | RAD ---
Exam: AP portable chest. History: Dyspnea for 3 days. Comparison: 10/27/2016. Findings: Cardiac silhouette is unchanged, mildly enlarged. Dual-lead AICD by left subclavian approach is again seen. Aortic atherosclerosis present. No pneumothorax or large pleural effusion is identified. Pulmonary vascularity is mildly increased, compatible with pulmonary vascular congestion. Impression: 1. Pulmonary vascular congestion.
== END 2016-12-20 02:57 | disposition home or self-care (01) ==
LOC: ER 00:26
DX: I11.0 Hypertensive heart disease with heart failure (principal); I50.9 Heart failure, unspecified; I48.91 Unspecified atrial fibrillation; I25.10 Atherosclerotic heart disease of native coronary artery without angina pectoris; J44.9 Chronic obstructive pulmonary disease, unspecified; G47.30 Sleep apnea, unspecified; M10.9 Gout, unspecified; Z95.810 Presence of automatic (implantable) cardiac defibrillator; Z79.899 Other long term (current) drug therapy; Z86.73 Personal history of transient ischemic attack (TIA), and cerebral infarction without residual deficits
CPT/HCPCS: 36415; 71010; 80048; 83880; 84484; 85027; 85610; 93005; 94250; 94640; 96374; 99285; J1940; J7620

== ENCOUNTER 2017-05-06 11:48 | Emergency (ER) | payer MEDICARE ==
[~2017-05-06] VITALS: Ht 175.3 cm; Wt 116.6 kg
[~2017-05-06 11:48] MED LIST changes: -ASPI325T4 PO; +ASPI325T8 PO; +DICL100G18 TP; -DICL100G7 TP; -MELA3TAB PO; +MELA3TAB2 PO; -OXYC-244 PO; +OXYC-327 PO; +WARF-78 PO; -WARF5TAB PO
--- NOTE | 2017-05-06 12:24 | PHYS DOC ---
Past Medical History Past Medical History: A-Fib, CAD, CHF, COPD, CVA, Hypertension, Seizure, Stroke Additional Past Medical Histor: SLEEP APNEA, GOUT Past Surgical History: Cholecystectomy, Pacemaker Additional Past Surgical Histo: with defibrillator Alcohol Use: None Drug Use: None Adult General Chief Complaint Chief Complaint: TOE PROBLEM HPI HPI Patient is a 56 year old male who presents with left great toenail bleeding. 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 His ' s been applying Neosporin daily and gauze and over the last 2 days it has gotten swollen, red, and today it started bleeding. He denies any fevers chills nausea vomiting or shortness of breath. He does have a seizure disorder and scared he might be close to having a seizure. Review of Systems Review of Systems Constitutional: Denies fever or chills [] Eyes: Denies change in visual acuity, redness, or eye pain [] HENT: Denies nasal congestion or sore throat [] Respiratory: Denies cough or shortness of breath [] Cardiovascular: No additional information not addressed in HPI [] GI: Denies abdominal pain, nausea, vomiting, bloody stools or diarrhea [] : Denies dysuria or hematuria [] Musculoskeletal: Denies back pain or joint pain [] Integument: Denies rash or skin lesions, left great toe lesion Neurologic: Denies headache, focal weakness or sensory changes [] Endocrine: Denies polyuria or polydipsia [] Current Medications Current Medications Current Medications Medications (Trade) Dose Ordered Sig/Abhay Start Time Stop Time Status Last Admin Dose Admin Cellulose 1 each 1X ONCE 05/06/17 12:45 05/06/17 12:46 DC 05/06/17 13:15 1 EACH Piperacillin Sod/ Tazobactam Sod (Zosyn Per Pharmacy) 1 each PRN DAILY PRN 05/06/17 14:45 UNV Piperacillin Sod/ Tazobactam Sod 3.375 gm/Sodium Chloride 50 ml @ 100 mls/hr ONCE ONCE 05/06/17 14:45 05/06/17 15:14 DC 05/06/17 15:05 100 MLS/HR Allergies Allergies Allergies Coded Allergies Type Severity Reaction Last Updated Verified No Known Drug Allergies 10/25/16 No Physical Exam Physical Exam Constitutional: Well developed, well nourished, no acute distress, non-toxic appearance. [] HENT: Normocephalic, atraumatic, bilateral external ears normal, oropharynx moist, no oral exudates, nose normal. [] Eyes: PERRLA, EOMI, conjunctiva normal, no discharge. [] Neck: Normal range of motion, no tenderness, supple, no stridor. [] Cardiovascular:Heart rate regular rhythm, no murmur [] Lungs & Thorax: Bilateral breath sounds clear to auscultation [] Abdomen: Bowel sounds normal, soft, no tenderness, no masses, no pulsatile masses. [] Skin: Warm, dry, no erythema, no rash. [] Back: No tenderness, no CVA tenderness. [] Extremities: No tenderness, no cyanosis, no clubbing, ROM intact, no edema. [] Neurologic: Alert and oriented X 3, normal motor function, normal sensory function, no focal deficits noted. [] Psychologic: Affect normal, judgement normal, mood normal. [] Current Patient Data Vital Signs Vital Signs Date Time Temp Pulse Resp B/P (MAP) Pulse Ox O2 Delivery O2 Flow Rate FiO2 05/06/17 11:55 98.9 85 26 163/103 (123) 100 Room Air 98.9 Lab Values Laboratory Tests Test 05/06/17 12:45 05/06/17 14:20 White Blood Count 5.4 x10^3/uL (4.0-11.0) Red Blood Count 4.26 x10^6/uL (4.30-5.70) L Hemoglobin 14.6 g/dL (13.0-17.5) Hematocrit 41.6 % (39.0-53.0) Mean Corpuscular Volume 98 fL (79-100) Mean Corpuscular Hemoglobin 34 pg (25-35) Mean Corpuscular Hemoglobin Concent 35 g/dL (31-37) Red Cell Distribution Width 13.5 % (11.5-14.5) Platelet Count 205 x10^3/uL (140-400) Neutrophils (%) (Auto) 70 % (31-73) Lymphocytes (%) (Auto) 16 % (24-48) L Monocytes (%) (Auto) 9 % (0-9) Eosinophils (%) (Auto) 4 % (0-3) H Basophils (%) (Auto) 1 % (0-3) Neutrophils # (Auto) 3.7 x10^3uL (1.8-7.7) Lymphocytes # (Auto) 0.8 x10^3/uL (1.0-4.8) L Monocytes # (Auto) 0.5 x10^3/uL (0.0-1.1) Eosinophils # (Auto) 0.2 x10^3/uL (0.0-0.7) Basophils # (Auto) 0.1 x10^3/uL (0.0-0.2) Prothrombin Time 22.0 SEC (11.7-14.0) H Prothrombin Time INR 2.1 (0.8-1.1) H Sodium Level 138 mmol/L (136-145) Potassium Level 3.5 mmol/L (3.5-5.1) Chloride Level 98 mmol/L (98-107) Carbon Dioxide Level 31 mmol/L (21-32) Anion Gap 9 (6-14) Blood Urea Nitrogen 24 mg/dL (8-26) Creatinine 1.2 mg/dL (0.7-1.3) Estimated GFR (Cockcroft-Gault) 62.4 Glucose Level 302 mg/dL (70-99) H Calcium Level 8.7 mg/dL (8.5-10.1) Magnesium Level 1.7 mg/dL (1.8-2.4) L Total Bilirubin 0.6 mg/dL (0.2-1.0) Direct Bilirubin 0.2 mg/dL (0.0-0.2) Aspartate Amino Transferase (AST) 106 U/L (15-37) H Alanine Aminotransferase (ALT) 66 U/L (16-63) H Alkaline Phosphatase 90 U/L (46-116) Creatine Kinase 147 U/L (39-308) Creatine Kinase MB (Mass) 1.6 ng/mL (0.0-3.6) Creatine Kinase MB Relative Index 1.1 % (0-4) Total Protein 7.6 g/dL (6.4-8.2) Albumin 3.2 g/dL (3.4-5.0) L Urine Collection Type Void Urine Color Yellow Urine Clarity Clear Urine pH 6.0 Urine Specific Yermo 1.015 Urine Protein Negative mg/dL (NEG-TRACE) Urine Glucose (UA) Negative mg/dL (NEG) Urine Ketones (Stick) Negative mg/dL (NEG) Urine Blood Negative (NEG) Urine Nitrite Negative (NEG) Urine Bilirubin Negative (NEG) Urine Urobilinogen Dipstick 0.2 mg/dL (0.2 mg/dL) Urine Leukocyte Esterase Negative (NEG) Urine RBC Occ /HPF (0-2) Urine WBC 0 /HPF (0-4) Urine Squamous Epithelial Cells Few /LPF Urine Bacteria 0 /HPF (0-FEW) Urine Hyaline Casts Occasional /HPF Urine Mucus Slight /LPF Laboratory Tests 05/06/17 12:45 Laboratory Tests 05/06/17 12:45 EKG EKG [] Radiology/Procedures Radiology/Procedures [place] [id number] IMAGING REPORT Signed PATIENT: SIMRAN THOMAS ACCOUNT: [id number] : 1960 LOCATION: ER AGE: 56 SEX: M EXAM STATUS: REG ER ORD. PHYSICIAN: MANPREET LUCIANO MD REASON: swelling PROCEDURE: VENOUS LOWER EXTREMITY LEFT Left lower extremity deep venous ultrasound 05/06/2017 Indication: [Edema. Recent injury] Comparison study: None Discussion: Sonographic evaluation of the deep veins of the left lower extremity performed. This includes grayscale imaging and color duplex imaging with spectral analysis. No evidence of deep venous thrombosis involving the left lower extremity is identified. Interrogated veins are compressible and demonstrate augmentable blood flow and color Doppler imaging. Impression: No evidence of deep venous thrombosis involving the left lower extremity. DICTATED and SIGNED BY: FRANKLIN GAN MD DATE: 05/06/17 1325 CC: MANPREET LUCIANO MD; PETRA BARROW MD ~ [address] [address] IMAGING REPORT Signed PATIENT: SIMRAN THOMAS ACCOUNT: [id number] : 1960 LOCATION: ER AGE: 56 SEX: M EXAM STATUS: REG ER ORD. PHYSICIAN: MANPREET LUCIANO MD REASON: swelling,pt lost big toe nail after hitting on deck,denies any bone pain, PROCEDURE: FOOT LEFT 3V Exam performed: 3 views left foot. History: Left foot pain and swelling. Patient lost great toenail. Date of service: 05/06/17. Comparison: None available 3 views left foot findings: Comminuted fracture distal tuft of the first distal phalanx with soft tissue swelling. Mild hallux valgus deformity of the first metatarsophalangeal joint with periarticular sclerosis. The remainder alignment appears preserved. Diffuse soft tissue swelling is seen. No foreign body. Impression: 1. Comminuted fracture distal tuft of the first distal phalanx. Correlate with the history of trauma. If no history of trauma is available, osteomyelitis may be considered. 2. Degenerative arthrosis and mild hallux valgus deformity of the left first toe DICTATED and SIGNED BY: MARTIN OBRIEN MD DATE: 05/06/17 1442 CC: MANPREET LUCIANO MD; PETRA BARROW MD ~ Impressions: Left great toe fracture Left great toe wound, bleeding controlled Course & Med Decision Making Course & Med Decision Making Pertinent Labs and Imaging studies reviewed. (See chart for details) Patient presented with pain and bleeding over his left great toe. I did remove the remainder of his toenail. X-rays of the toe shows a nondisplaced fracture of the distal left toe. Toe his mildly injected in this could be secondary fracture or infection. He does not have a fever elevated white blood cell count however since he does have his toenail missing and a fracture in her that I'll go ahead and treat as an open fracture and give anabolic for 10 days. He is being discharged on Augmentin. Spoke with Dr. Barrow is agreeable plan. Patient' s in stable condition and is told to follow-up with Dr. Barrow in 1 week. Return precautions given. Dragon Disclaimer Dragon Disclaimer This electronic medical record was generated, in whole or in part, using a voice recognition dictation system. Departure Departure Impression: Primary Impression: Toe fracture, left Disposition: 01 HOME, SELF-CARE Condition: STABLE Referrals: PETRA BARROW MD (PCP) Patient Instructions: Toe Fracture Additional Instructions: You have a broken left toe. You will need take antibiotics for the next 10 days for this. Continue using the Surgicel product as needed if it starts to bleed. Keep an eye on it to make sure it doesn't become increasingly red or more swollen. Will need to follow-up with your regular physician within a week to make sure it's healing correctly. Return the ER if you have any concerns of excessive bleeding, pain or other concerns. Scripts Amoxicillin/Potassium Clav (AUGMENTIN 875-125 TABLET) 1 Each Tablet 1 TAB PO BID, #20 TAB Prov: MANPREET LUCIANO MD 05/06/17 MANPREET LUCIANO MD May 06, 2017 12:24
[2017-05-06] MEDS ORDERED: SURGICEL HEMOSTAT 4X8 EACH. TP ONE (12:45)
--- NOTE | 2017-05-06 12:48 | EKG ---
[facility] [address] [place] [address] Test Date: 2017-05-06 Test Time: 12:33:56 Pat Name: SIMRAN THOMAS Department: Room: Gender: M Teaching Dietitian: : 1960 Requested By: MANPREET LUCIANO Order Number: [id number] Reading MD: Chavez Wynne Measurements Intervals Independence Rate: 81 P: -177 SC: 238 QRS: -118 QRSD: 214 T: 64 QT: 452 QTc: 526 Interpretive Statements SUSPECT SR V-PACED Electronically Signed On 05-12-2017 14:17:39 CDT by Chavez Wynne
[2017-05-06 12:56] LABS: BASO # 0.1 x10^3/uL (0.0-0.2); BASO % 1 % (0-3); EOS % 4 % (0-3); HEMATOCRIT 41.6 % (39.0-53.0); HEMOGLOBIN 14.6 g/dL (13.0-17.5); LYMPH # 0.8 x10^3/uL (1.0-4.8); LYMPH % 16 % (24-48); MEAN CORPUSCULAR HEMOGLOBIN 34 pg (25-35); MEAN CORPUSCULAR HGB CONC 35 g/dL (31-37); MEAN CORPUSCULAR VOLUME 98 fL (79-100); MONO % 9 % (0-9); NEUT % 70 % (31-73); PLATELET COUNT 205 x10^3/uL (140-400); RED BLOOD COUNT 4.26 x10^6/uL (4.30-5.70); RED CELL DISTRIBUTION WIDTH 13.5 % (11.5-14.5); WHITE BLOOD COUNT 5.4 x10^3/uL (4.0-11.0)
[2017-05-06 13:05] LABS: CALCIUM 8.7 mg/dL (8.5-10.1); CREATININE 1.2 mg/dL (0.7-1.3); GFR 62.4; POTASSIUM 3.5 mmol/L (3.5-5.1)
[2017-05-06 13:11] LABS: ALBUMIN 3.2 g/dL (3.4-5.0); DIRECT BILIRUBIN 0.2 mg/dL (0.0-0.2); MAGNESIUM 1.7 mg/dL (1.8-2.4); TOTAL BILIRUBIN 0.6 mg/dL (0.2-1.0); TOTAL PROTEIN 7.6 g/dL (6.4-8.2)
[2017-05-06 13:14] LABS: INR 2.1 (0.8-1.1)
[2017-05-06 13:18] LABS: CKMB MASS 1.6 ng/mL (0.0-3.6)
--- NOTE | 2017-05-06 13:28 | RAD ---
Left lower extremity deep venous ultrasound 05/06/2017 Indication: [Edema. Recent injury] Comparison study: None Discussion: Sonographic evaluation of the deep veins of the left lower extremity performed. This includes grayscale imaging and color duplex imaging with spectral analysis. No evidence of deep venous thrombosis involving the left lower extremity is identified. Interrogated veins are compressible and demonstrate augmentable blood flow and color Doppler imaging. Impression: No evidence of deep venous thrombosis involving the left lower extremity.
[2017-05-06 14:37] LABS: BILIRUBIN,URINE NEGATIVE (NEG); GLUCOSE,URINE NEGATIVE (NEG); NITRITE,URINE NEGATIVE (NEG); PROTEIN,URINE NEGATIVE (NEG-TRACE); UROBILINOGEN,URINE 0.2 mg/dL (0.2 mg/dL)
[2017-05-06 14:45] LABS: BACTERIA,URINE 0 /HPF (0-FEW); RBC,URINE OCC /HPF (0-2); SQUAMOUS EPITHELIAL CELL,UR FEW /LPF; WBC,URINE 0 /HPF (0-4)
[2017-05-06] MEDS ORDERED: PIPERACILLIN/TAZOBACTAM 3.375 GM in IV NORMAL SALINE 50ML 50 ML IV ONE (14:45)
[2017-05-06] MEDS ORDERED: PIP/TAZO PER PHARMACY MC PRN (14:45)
--- NOTE | 2017-05-06 14:53 | RAD ---
Exam performed: 3 views left foot. History: Left foot pain and swelling. Patient lost great toenail. Date of service: 05/06/17. Comparison: None available 3 views left foot findings: Comminuted fracture distal tuft of the first distal phalanx with soft tissue swelling. Mild hallux valgus deformity of the first metatarsophalangeal joint with periarticular sclerosis. The remainder alignment appears preserved. Diffuse soft tissue swelling is seen. No foreign body. Impression: 1. Comminuted fracture distal tuft of the first distal phalanx. Correlate with the history of trauma. If no history of trauma is available, osteomyelitis may be considered. 2. Degenerative arthrosis and mild hallux valgus deformity of the left first toe
[2017-05-06] MEDS ORDERED: AMOX1TAB61 PO (15:46)
[2017-05-06 15:50] VITALS: BP 145/64
[2017-05-06 22:30] LABS: BARBITURATES NEG (NEG); BENZODIAZEPINES NEG (NEG); CANNABINOIDS NEG (NEG); COCAINE NEG (NEG); METHADONE NEG (NEG); OPIATES NEG (NEG); PHENCYCLIDINE NEG (NEG)
== END 2017-05-06 17:00 | disposition home or self-care (01) ==
LOC: ER 11:48
DX: S92.912A Unspecified fracture of left toe(s), initial encounter for closed fracture (principal); I48.91 Unspecified atrial fibrillation; I11.0 Hypertensive heart disease with heart failure; I50.9 Heart failure, unspecified; J44.9 Chronic obstructive pulmonary disease, unspecified; Z86.73 Personal history of transient ischemic attack (TIA), and cerebral infarction without residual deficits; M10.9 Gout, unspecified; G47.30 Sleep apnea, unspecified; Z90.49 Acquired absence of other specified parts of digestive tract; Z95.0 Presence of cardiac pacemaker; I25.10 Atherosclerotic heart disease of native coronary artery without angina pectoris; Z95.810 Presence of automatic (implantable) cardiac defibrillator; W23.0XXA Caught, crushed, jammed, or pinched between moving objects, initial encounter; Y93.89 Activity, other specified; Y99.8 Other external cause status; Y92.89 Other specified places as the place of occurrence of the external cause
CPT/HCPCS: 36415; 73630; 80048; 80076; 80307; 81001; 82553; 83735; 85025; 85610; 93005; 93971; 96365; 99285; J2543; G0479

== ENCOUNTER → 2018-12-25 | Outpatient (CLI) | payer MEDICARE ==
[~2018-12-25] MED LIST changes: +ALBU2.5V8 IH; +ALBU2.5V8 INH; -AMIO200T2 PO; +AMIO200T4 PO; +AMLO5TAB10 PO; -AMLO5TAB2 PO; +AMOX1TAB61 PO; +CARV12.511 PO; -CARV12.52 PO; -GEMF600T3 PO; +GEMF600T8 PO; +LOSA-73 PO; +LOSA100T14 PO; -LOSA100T6 PO; -LOSA50TA2 PO; -OXYC-327 PO; +OXYC1TAB19 PO; -PROAIR HFA8.5 GM IH; -PROAIR HFA8.5 GM INH; -SPIR50TA2 PO; +SPIR50TA4 PO; +WARF-31 PO; -WARF5TAB7 PO
[2018-12-25 13:06] LABS: CALCIUM 9.4 mg/dL (8.5-10.1); CREATININE 1.7 mg/dL (0.7-1.3); GFR 41.5; POTASSIUM 3.7 mmol/L (3.5-5.1)
--- NOTE | 2018-12-26 12:42 | CARD ---
MR#: [id number] Date of Study: 12/25/2018 Ordering Physician: ADELAIDE WYNNE, Referring Physician: ADELAIDE WYNNE, Tech: Nadiya Lorenzo APPROVED REPORT EXAM: Two-dimensional and M-mode echocardiogram with Doppler and color Doppler. Other Information Quality : FairHR: 89bpm INDICATION Atrial Fibrillation Surgery/Intervention Pacemaker: 2D DIMENSIONS Left Atrium(2D)4.6 (1.6-4.0cm)IVSd1.7 (0.7-1.1cm) Aortic Root(2D)4.6 (2.0-3.7cm)LVDd5.9 (3.9-5.9cm) LVOT Diameter2.2 (1.8-2.4cm)PWd1.6 (0.7-1.1cm) LVDs4.4 (2.5-4.0cm)FS (%) 15.2 % SV41.4 mlLVEF(%)32.0 (>50%) Aortic Valve AoV Peak Eliseo.121.0cm/sAoV VTI19.5cm AO Peak GR.6.4mmHgLVOT Peak Eliseo.92.4cm/s AO Mean GR.4mmHgAVA (VMAX)4.20cm2 Pulmonary Valve PV Peak Tgbkdftb67.2cm/s Tricuspid Valve TR P. [id number]/sRAP [id number] TR Peak Gr.13mmHg LEFT VENTRICLE The Left Ventricle is mildly dilated. There is moderate to severe concentric left ventricular hypertr ophy. The systolic function is moderately impaired. The Ejection Fraction is 30-35%. There is global hypokinesis of the left ventricle. Transmitral Doppler flow pattern is Grade I-abnormal relaxation pa ttern. RIGHT VENTRICLE The right ventricle is mildly dilated. There is normal right ventricular wall thickness. Systolic fun ction is borderline reduced. There is a pacemaker lead in the right ventricle. ATRIA The left atrium is mildly dilated. There is a pacemaker lead seen in the right atrium. The right atri um is moderately dilated. The interatrial septum is intact with no evidence for an atrial septal defe ct or patent foramen ovale as noted on 2-D or Doppler imaging. AORTIC VALVE The aortic valve is calcified but opens well. Doppler and Color Flow revealed no significant aortic r egurgitation. There is no significant aortic valvular stenosis. MITRAL VALVE The mitral valve is mildly thickened but opens well. Mitral annular calcification is mild. There is n o evidence of mitral valve prolapse. There is no mitral valve stenosis. Doppler and Color Flow reveal ed no mitral valve regurgitation noted. TRICUSPID VALVE The tricuspid valve is not well visualized. Doppler and Color Flow revealed no tricuspid valve regurg itation noted. There is no tricuspid valve stenosis. PULMONIC VALVE Doppler and Color Flow revealed no pulmonic valvular regurgitation. There is no pulmonic valvular anastasia nosis. GREAT VESSELS The aortic root appears mildly enlarged. Probably measures around 4.3 The IVC was not visualized. PERICARDIAL EFFUSION There is no evidence of significant pericardial effusion. Critical Notification Critical Value: No <Conclusion> The systolic function is moderately impaired. The Ejection Fraction is 30-35%. There is global hypokinesis of the left ventricle. There is a pacemaker lead in the right ventricle. The aortic root appears mildly enlarged. Probably measures around 4.3 cm Signed by : Adelaide Wynne, Electronically Approved : 12/26/2018 12:42:01
== END | disposition home or self-care (01) ==
LOC: ECHO 11:28
PROVIDERS: ATTEND Internal Medicine Cardiovascular Disease
DX: I08.0 Rheumatic disorders of both mitral and aortic valves (principal); I48.91 Unspecified atrial fibrillation; Z95.0 Presence of cardiac pacemaker
CPT/HCPCS: 36415; 80048; 83880; 93306

== ENCOUNTER 2020-06-01 04:33 | Emergency (ER) | payer MEDICARE ==
[~2020-06-01] VITALS: Ht 182.9 cm; Wt 150.0 kg
[~2020-06-01 04:33] MED LIST changes: -DICL100G18 TP; +DICL100G54 TP; -GLIM4TAB2 PO; +GLIM4TAB8 PO; -LEVO75TA PO; +LEVO75TA90 PO; -MELA3TAB2 PO; +MELA3TAB4 PO; -PANT40TA3 PO; +PANT40TA77 PO; -WARF-78 PO; +WARF5TAB2 PO
[2020-06-01] MEDS ORDERED: IV NORMAL SALINE 1000ML BAG 1,000 ML IV ONE (04:45)
--- NOTE | 2020-06-01 04:48 | PHYS DOC ---
Past Medical History Past Medical History: A-Fib, CAD, CHF, COPD, CVA, Hypertension, Seizure, Stroke Additional Past Medical Histor: SLEEP APNEA, GOUT (GREGG BELLAMY MD) Past Surgical History: Cholecystectomy, Pacemaker Additional Past Surgical Histo: with defibrillator (GREGG BELLAMY MD) Smoking Status: Never Smoker Alcohol Use: None Drug Use: None (GERGG BELLAMY MD) General Adult EDM: Chief Complaint: WEAKNESS/GENERALIZED HPI: HPI: Patient is a 59 year old who arrives via EMS with a chief complaint of generalized weakness and low blood pressure. Patient states he has felt weak and has had low blood pressure last couple days. Patient has also had a cough. Patient denies a specific pain but just feels weak all over. Patient denies any vomiting diarrhea or blood in his stools. Symptoms are worse with activity and better at rest. (GREGG BELLAMY MD) Review of Systems: Review of Systems: Constitutional: Denies fever or chills. [] Eyes: Denies change in visual acuity. [] HENT: Denies nasal congestion or sore throat. [] Respiratory: Complains of cough and shortness of breath. [] Cardiovascular: Denies chest pain but has edema. [] GI: Denies abdominal pain, nausea, vomiting, bloody stools or diarrhea. [] : Denies dysuria. [] Musculoskeletal: Denies back pain or joint pain. [] Integument: Denies rash. [] Neurologic: Denies headache, focal weakness or sensory changes. [] Complains of generalized weakness Endocrine: Denies polyuria or polydipsia. [] Lymphatic: Denies swollen glands. [] Psychiatric: Denies depression or anxiety. [] (GREGG BELLAMY MD) Heart Score: Risk Factors: Risk Factors: DM, Current or recent (<one month) smoker, HTN, HLP, family history of CAD, obesity. Risk Scores: Score 0 - 3: 2.5% MACE over next 6 weeks - Discharge Home Score 4 - 6: 20.3% MACE over next 6 weeks - Admit for Clinical Observation Score 7 - 10: 72.7% MACE over next 6 weeks - Early Invasive Strategies (GREGG BELLAMY MD) Current Medications: Current Medications Medications (Trade) Dose Ordered Sig/Abhay Start Time Stop Time Status Last Admin Dose Admin Sodium Chloride 1,000 ml @ 1,000 mls/hr 1X ONCE 06/01/20 04:45 06/01/20 05:44 UNV (GREGG BELLAMY MD) Allergies: Allergies: Allergies Coded Allergies Type Severity Reaction Last Updated Verified No Known Drug Allergies 10/25/16 No (GREGG BELLAMY MD) Physical Exam: PE: Constitutional: Drowsy moderate distress HENT: Normocephalic, atraumatic, bilateral external ears normal, no trismus, nose normal. [] Eyes: PERRLA, EOMI, conjunctiva normal, no discharge. [] Neck: Normal range of motion, no tenderness, supple, no stridor. [] Cardiovascular:Heart rate regular rhythm, slightly diminished peripheral pulses cap refill 2 to 3 seconds Lungs & Thorax: Mildly labored breathing with diminished breath sounds bilaterally Abdomen: , soft, no tenderness, no masses, no pulsatile masses. [] Skin: pale Back: No tenderness, no CVA tenderness. [] Extremities: Limited range of motion with bilateral lower extremity swelling but more prominent swelling to left arm and leg Neurologic: Drowsy but oriented X 3, generalized weakness, l>R Psychologic: Blunted mood (GREGG BELLAMY MD) Current Patient Data: Labs: Laboratory Tests Test 06/01/20 05:03 06/01/20 05:25 White Blood Count 8.9 x10^3/uL Red Blood Count 2.54 x10^6/uL Hemoglobin 5.0 g/dL Hematocrit 18.0 % Mean Corpuscular Volume 71 fL Mean Corpuscular Hemoglobin 20 pg Mean Corpuscular Hemoglobin Concent 28 g/dL Red Cell Distribution Width 20.0 % Platelet Count 346 x10^3/uL Neutrophils (%) (Auto) 81 % Lymphocytes (%) (Auto) 11 % Monocytes (%) (Auto) 5 % Eosinophils (%) (Auto) 2 % Basophils (%) (Auto) 1 % Neutrophils # (Auto) 7.2 x10^3/uL Lymphocytes # (Auto) 1.0 x10^3/uL Monocytes # (Auto) 0.4 x10^3/uL Eosinophils # (Auto) 0.2 x10^3/uL Basophils # (Auto) 0.1 x10^3/uL Platelet Estimate Pending Prothrombin Time 55.9 SEC Prothromb Time International Ratio 6.1 Activated Partial Thromboplast Time 75 SEC Fibrinogen 454 mg/dL Sodium Level 133 mmol/L Potassium Level 9.2 mmol/L Chloride Level 104 mmol/L Carbon Dioxide Level 18 mmol/L Anion Gap 11 Blood Urea Nitrogen 46 mg/dL Creatinine 3.3 mg/dL Estimated GFR (Cockcroft-Gault) 19.2 BUN/Creatinine Ratio 14 Glucose Level 138 mg/dL Lactic Acid Level 2.7 mmol/L Calcium Level 8.9 mg/dL Magnesium Level 2.1 mg/dL Total Bilirubin 0.3 mg/dL Aspartate Amino Transf (AST/SGOT) 29 U/L Alanine Aminotransferase (ALT/SGPT) 16 U/L Alkaline Phosphatase 110 U/L Ammonia 31 mcmol/L Creatine Kinase 52 U/L Troponin I Quantitative 0.071 ng/mL Total Protein 7.2 g/dL Albumin 3.2 g/dL Albumin/Globulin Ratio 0.8 Lipase 228 U/L Glucose (Fingerstick) 176 mg/dL Current Medications Medications (Trade) Dose Ordered Sig/Abhay Route PRN Reason Start Time Stop Time Status Last Admin Dose Admin Sodium Chloride 1,000 ml @ 1,000 mls/hr 1X ONCE IV 06/01/20 04:45 06/01/20 05:44 DC 06/01/20 05:23 Calcium Gluconate (Calcium Gluconate) 1,000 mg 1X ONCE IVP 06/01/20 05:15 06/01/20 05:16 DC Calcium Gluconate (Calcium Gluconate) 1,000 mg STK-MED ONCE .ROUTE 06/01/20 05:14 06/01/20 05:14 DC Norepinephrine Bitartrate 8 mg/ Dextrose 258 ml @ 23.22 mls/ hr 1X ONCE IV 06/01/20 06:30 06/01/20 17:36 Tranexamic Acid (Cyklokapron) 1,000 mg 1X ONCE TOP 06/01/20 06:45 06/01/20 06:46 (GREGG BELLAMY MD) EKG: EKG: EKG shows a paced wide-complex rhythm with broad-based T waves very irregular with a rate approximately 60 [] (GREGG BELLAMY MD) Radiology/Procedures: Radiology/Procedures: [] (GREGG BELLAMY MD) Course & Med Decision Making: Course & Med Decision Making Pertinent Labs and Imaging studies reviewed. (See chart for details) [] Upon seen initial EKG ordered calcium because I was afraid the patient may be hyperkalemic Around 5:15 AM I got called to the room for change in mental status. Patient went unresponsive and had some hiccup-like activity with his abdomen. On my assessment patient is currently protecting his airway but is difficult to arouse I spent 5 to 10 minutes in the room and patient began to open his eyes to verbal stimuli patient does have a history of seizures and I wonder if he had a seizure at this time. We are getting a blood gas to check for CO2 retention to see if he needs BiPAP at this time. Patient's blood gas came back very acidotic and BiPAP was ordered. Patient had a hemoglobin of 5 and blood was ordered. Per nursing staff patient was able to say he was at [facility] after the seizure-like episode but then at approximately 535 patient went unresponsive and stopped breathing. I was called into the room and CPR was initiated and guided by me. Full ACLS protocol was initiated patient was intubated by me with a glide scope. A centr al line was placed in the right femoral area by me. Full ACLS was continued, patient received multiple rounds of bicarb and calcium due to lab calling with a potassium of 9.2. Patient received epinephrine as well as amiodarone during the code. Patient had one episode of V. fib and was shocked. Approximately 6:15 patient had return of spontaneous circulation with a narrow complex. I discussed that the patient was very critical with the family and Dr. MILAN will be taking over the care Indication: Respiratory failure Consent: Unable to give consent due to emergent nature. Medications Used: see nursing note Procedure: The patient was placed in the appropriate position. Intubation was performed by me with a 4 blade glide scope endotracheal tube was seen going through the cords and secured at 22 at the gums. . Initial confirmation of placement included bilateral breath sounds, tube fogging, adequate chest rise, Indication: Vascular access Consent: Emergent condition prohibited consent Procedure: The patient was positioned appropriately and the skin over the [RIGHT femoral] [VEIN] was prepped and draped in a sterile fashion. A large bore needle was used to identify the vein. A guide wire was then inserted into the vein through the needle. A triple lumen catheter was then inserted into the vessel over the guide wire using the Seldinger technique. All ports showed good, free flowing blood return and were flushed with saline solution. The catheter was then securely fastened to the skin with sutures and covered with a dressing. Critical care time was [40] minutes exclusive of procedures. Critical care time was [40] minutes which includes time at bedside, spent in discussion of patient's care with specialist and/or family members, with interpretation of laboratory and/or radiological studies and is exclusive of procedures. Critical condition: Respiratory failure, cardiac arrest, hyperkalemia, sepsis profound anemia Critical interventions, CPR, intubation, central line, hyperkalemia cocktail, blood transfusion (GREGG BELLAMY MD) Course & Med Decision Making pmh: CVA w/left sided paralysis, CAD, CHF with low ejection fraction, AICD placed in 2001, morbid obesity, seizure disorder, hypothyroidism I received full signout from Dr. Bellamy at 6 AM at shift change. Patient was in PEA arrest with active ACLS protocol - calcium, epi, bicarb and D50 given. During one pulse check pt had vfib and was defibrillated. A repeat pulse check had a narrow complex with rosc for approximately 10 minutes, BP 86/-, some cardiac activity on POCUS subxyphoid and parasternal long. 300 amiodarone given. MTP was activated. I witnessed pt with a wide complex rhythm, became bradycardic and pt went into pea arrest. ACLS protocol resumed. Further pulses checks with asystole. Massive transfusion was started with 2 units PRBCs, 1 g of TXA and patient was started on Levophed 20 mcg. Patient had bilateral breath sounds. Glucose within normal limits. Lab reported INR of 6, potassium of 9, slightly elevated troponin and lactic acid. CPR resumed for another 27 minutes, unable to obtain Rosc (initial cpr was started at 5:35 am). Time of 0640am. and two sons notified. Senior Bi Developer at bedside. All their questions were answered. Critical Care: Authorized and Performed by: Khushboo Milan DO Total critical care time: approximately 45 minutes Due to a high probability of clinically significant, life threatening deterioration, the patient required my highest level of preparedness to intervene emergently and I personally spent this critical care time directly and personally managing the patient. This critical care time included obtaining a history; examining the patient; pulse oximetry; ventilator management if necessary; ordering and review of studies; arranging urgent treatment with development of a management plan; evaluation of patient's response to treatment; frequent reassessment; discussion with patient/family; and, discussions with other providers. This critical care time was performed to assess and manage the high probability of imminent, life-threatening deterioration that could result in multi-organ failure. It was exclusive of separately billable procedures and treating other patients and teaching time. Please see MDM section and the rest of the note for further information on patient assessment and treatment. (KHUSHBOO MILAN DO) Dragon Disclaimer: Dragon Disclaimer: This electronic medical record was generated, in whole or in part, using a voice recognition dictation system. (GREGG BELLAMY MD) Departure Departure Impression: Primary Impression: Hyperkalemia Additional Impressions: Cardiac arrest Anemia Elevated lactic acid level Elevated troponin Elevated INR Disposition: 20 Condition: Referrals: PETRA RASHID MD (PCP) Justicifation of Admission Dx: Justifications for Admission: Justification of Admission Dx: N/A (GREGG BELLAMY MD) Justification of Admission Dx: N/A (KHUSHBOO MILAN DO) GREGG BELLAMY MD Jun 01, 2020 04:47 KHUSHBOO MILAN DO Jun 01, 2020 07:12
[2020-06-01] MEDS ORDERED: CALCIUM GLUCONATE 1,000 MG/10 ML VIAL. ONE (05:14)
[2020-06-01] MEDS ORDERED: CALCIUM GLUCONATE 1,000 MG/10 ML VIAL. IVP ONE (05:15)
--- NOTE | 2020-06-01 05:22 | EKG ---
[facility] [address] [place] [id number] Test Date: 2020-06-01 Test Time: 04:53:27 Pat Name: SIMRAN THMOAS Department: Room: Gender: M Operations Project Manager: : 1960 Requested By: GREGG BELLAMY Order Number: [id number] Reading MD: Measurements Intervals [place] Rate: 0 P: [place]: QRS: 0 QRSD: 0 T: 0 QT: 0 QTc: 0 Interpretive Statements No previous ECG available for comparison
[2020-06-01 05:28] LABS: BASO # 0.1 x10^3/uL (0.0-0.2); BASO % 1 % (0-3); EOS # 0.2 x10^3/uL (0.0-0.7); EOS % 2 % (0-3); LYMPH % 11 % (24-48); MEAN CORPUSCULAR HEMOGLOBIN 20 pg (25-35); MEAN CORPUSCULAR HGB CONC 28 g/dL (31-37); MEAN CORPUSCULAR VOLUME 71 fL (79-100); MONO # 0.4 x10^3/uL (0.0-1.1); MONO % 5 % (0-9); NEUT # 7.2 x10^3/uL (1.8-7.7); NEUT % 81 % (31-73); PLATELET COUNT 346 x10^3/uL (140-400); RED BLOOD COUNT 2.54 x10^6/uL (4.30-5.70); WHITE BLOOD COUNT 8.9 x10^3/uL (4.0-11.0)
[2020-06-01 05:50] LABS: PROTHROMBIN TIME PATIENT 55.9 SEC (11.7-14.0)
[2020-06-01 06:24] LABS: ALBUMIN 3.2 g/dL (3.4-5.0); ALBUMIN/GLOBULIN RATIO 0.8 (1.0-1.7); CALCIUM 8.9 mg/dL (8.5-10.1); CREATININE 3.3 mg/dL (0.7-1.3); GFR 19.2; TOTAL PROTEIN 7.2 g/dL (6.4-8.2)
[2020-06-01 06:25] LABS: TOTAL BILIRUBIN 0.3 mg/dL (0.2-1.0)
[2020-06-01 06:27] LABS: POTASSIUM 9.2 mmol/L (3.5-5.1)
[2020-06-01 06:30] VITALS: BP 248/165
[2020-06-01] MEDS ORDERED: NOREPINEPHRINE VIAL 8 MG in IV DEXTROSE 5% 250 ML IV ONE (06:30)
[2020-06-01 06:38] LABS: BASE EXCESS COOX -18 mmol/L (-3-3); HCO3 COOX 10 mmol/L (21-28); METHEMOGLOBIN 0.7 % (0.0-1.9); OXYHEMOGLOBIN 94.1 %; PCO2 COOX 34 mmHg (35-46); PO2 COOX 108 mmHg (65-108); SAT O2 COOX 96 % (92-99)
[2020-06-01] MEDS ORDERED: TRANEXAMIC ACID 1,000 MG/10 ML VIAL. TOP ONE (06:45)
[2020-06-01 08:48] LABS: PLT ESTIMATE ADEQUATE (ADEQUATE)
[2020-06-01 08:49] LABS: ANISOCYTOSIS SLIGHT; MICROCYTOSIS SLIGHT; OVALOCYTES MOD; POLYCHROMASIA SLIGHT; TEAR DROP CELLS FEW
[2020-06-01 08:50] LABS: HYPOCHROMIA MOD
[2020-06-01 09:59] LABS: ALBUMIN 2.7 g/dL (3.4-5.0); ALBUMIN/GLOBULIN RATIO 0.8 (1.0-1.7); ALK PHOS 100 U/L (46-116); ALT (SGPT) 16 U/L (16-63); ANION GAP 13 (6-14); AST (SGOT) 22 U/L (15-37); BLOOD UREA NITROGEN 43 mg/dL (8-26); BUN/CREATININE RATIO 13 (6-20); CHLORIDE 104 mmol/L (98-107); CREATININE 3.4 mg/dL (0.7-1.3); GFR 18.6; SODIUM 129 mmol/L (136-145); TOTAL BILIRUBIN 0.3 mg/dL (0.2-1.0); TOTAL PROTEIN 6.2 g/dL (6.4-8.2)
[2020-06-01 11:05] LABS: PROTHROMBIN TIME PATIENT 68.4 SEC (11.7-14.0)
[2020-06-01 11:09] LABS: WHITE BLOOD COUNT 13.6 x10^3/uL (4.0-11.0)
[2020-06-01 11:10] LABS: RED BLOOD COUNT 2.31 x10^6/uL (4.30-5.70)
[2020-06-01 11:11] LABS: HEMATOCRIT 19.8 % (39.0-53.0); HEMOGLOBIN 4.7 g/dL (13.0-17.5); MEAN CORPUSCULAR VOLUME 86 fL (79-100)
[2020-06-01 11:15] LABS: MEAN CORPUSCULAR HEMOGLOBIN 20 pg (25-35)
[2020-06-01 11:16] LABS: LYMPH % 28 % (24-48); MEAN CORPUSCULAR HGB CONC 24 g/dL (31-37); MONO % 6 % (0-9); NEUT % 64 % (31-73); PLATELET COUNT 338 x10^3/uL (140-400)
[2020-06-01 11:17] LABS: BASO # 0.1 x10^3/uL (0.0-0.2); BASO % 1 % (0-3); EOS # 0.2 x10^3/uL (0.0-0.7); EOS % 2 % (0-3); LYMPH # 3.7 x10^3/uL (1.0-4.8); MONO # 0.9 x10^3/uL (0.0-1.1); NEUT # 8.7 x10^3/uL (1.8-7.7)
[2020-06-01 11:21] LABS: CARBON DIOXIDE 12 mmol/L (21-32)
[2020-06-01 11:25] LABS: POTASSIUM 7.5 mmol/L (3.5-5.1)
[2020-06-01] MEDS ORDERED: EPINEPHrine SYRINGE 1 MG/10 ML SYRINGE ONE (12:00)
[2020-06-01] MEDS ORDERED: CALCIUM CHLORIDE 1,000 MG/10 ML DISP.SYRIN ONE (12:00)
[2020-06-01] MEDS ORDERED: SODIUM BICARB ADULT 8.4% 50 MEQ/50 ML DISP.SYRIN. ONE (12:00)
[2020-06-01] MEDS ORDERED: AMIODARONE 150 MG/3 ML VIAL ONE (12:00)
== END 2020-06-01 07:55 | disposition expired ==
LOC: ER 04:33
DX: I46.9 Cardiac arrest, cause unspecified (principal); E87.5 Hyperkalemia; D64.9 Anemia, unspecified; R74.0 Nonspecific elevation of levels of transaminase and lactic acid dehydrogenase [LDH]; R79.89 Other specified abnormal findings of blood chemistry
CPT/HCPCS: 31500; 36415; 36430; 36556; 36600; 80053; 82140; 82550; 82805; 82962; 83605; 83690; 83735; 84484; 85025; 85384; 85610; 85730; 86850; 86900; 86901; 86920; 87040; 92950; 93005; 96361; 96374; 99291; J0171; J0282; J0610; J3490; J7030; P9016